=== PATIENT | female | born 1990 | race Caucasian/White ===

== ENCOUNTER 2021-07-18 21:05 | Inpatient (IN) | payer BC, SELFPAY ==
[2021-07-18] VITALS (8 sets, daily range): BP systolic 113–138; BP diastolic 70–94; PULSE 85–106; TEMP 36.4–36.8; O2SAT 98–100; BMI 27.7
--- NOTE | 2021-07-18 19:39 | OB.TRI.NOTE ---
HPI - General HPI Narrative ROSALINA CASTILLO, is a 31 F at 37.5 weeks gestation who presents for r/o SROM Maternal Data Information RAFAELA Calculator Estimated Delivery Date Method Current WG Current Estimate 08/03/21 Manual 37w 5d
[2021-07-18 20:45] LABS: ROM Internal Control Test YES-OK TO RESULT pt. (Internal QC)
[2021-07-18 20:46] LABS: ROM Patient Test POSITIVE (Negative)
[2021-07-18] MEDS: Lactated Ringers 1,000 ML 50 ML IV (21:20)
[2021-07-18 21:36] LABS: Absolute Lymphocyte Count 1.48 X10^3/uL (0.83-4.51); Absolute Neutrophil Count 7.5 X10^3/uL (2.0-7.7); Basophil# 0.04 X10^3/uL; Basophil% 0.4 % (0-1); Eosinophil# 0.07 X10^3/uL; Eosinophils% 0.7 % (0-5); Hematocrit 34.8 % (37-47); Hemoglobin 12.8 g/dL (12.0-15.0); Lymphocyte # 1.48 X10^3/ul (0.83-4.51); Lymphocyte % 14.4 % (19-41); Mean Corp Hgb Conc 36.8 g/dL (32-36); Mean Corpuscular Hgb 32.8 pg (27.0-32.0); Mean Corpuscular Volume 89.2 fL (81-99); Mean Platelet Vol. 11.1 fl (6.2-12.0); Monocyte% 10.7 % (0-10); NRBC Flagged by Analyzer 0 % (0-5); Neutrophil # 7.46 X10^3/uL (2.7-7.7); Neutrophil % 72.5 % (47-70); Platelet Count 206 K/mm3 (150-450); RBC Distribution Width CV 13.4 % (11.6-14.6); RBC Distribution Width SD 43.2 fl (35.1-43.9); White Blood Count 10.3 K/mm3 (4.4-11.0)
--- NOTE | 2021-07-18 22:22 | PCM.HP.OB ---
HPI - General General Date of Admission: 07/18/21 HPI Narrative ROSALINA CASTILLO, is a 31 F G1 PO at 37.5 who presents with leaking of fluid. Patient reports she felt a gush of fluid while sitting in the car around 1800. She continues to leak fluid. Positive movement. Denies any contractions. has been uncomplicated. Maternal Data Information RAFAELA Calculator Estimated Delivery Date Method Current WG Current Estimate 08/03/21 Manual 37w 5d PFSH PFSH Medical History Closed fracture of coccyx Home Medications [id number]-[id number]-Ge-[id number] [] 1 tab PO DAILY 07/18/21 [History Last Taken 07/18/21 07:00 1 tab] Allergy/AdvReac Type Severity Reaction Status Date / Time caffeine Allergy Other Verified 07/18/21 20:09 red (food color) Allergy Other Verified 07/18/21 20:10 Family History Father Cancer Ankylosis Grandmother Stomach cancer Lupus (systemic lupus erythematosus) Mother Salivary gland cancer Hypertension Grandfather Bone cancer Surgical History History of surgery History of surgery History of surgery Social History Smoking Status: Never smoker History Elective abortions Hx Para 0 Spontaneous abortions Hx # Term Pregnancies Ectopic pregnancies Hx # Pregnancies Multiple births # of living children NST FHR Rate Baby A Baseline: 130 Variability:: Moderate Accelerations:: 15 x 15 Decelerations:: None NST Reactive:: Yes FHR Category:: Category I Uterine Activity:: 4-5 minutes. Palpate mild and relaxed in between ROS Eyes Eyes: Denies blurry vision, change in vision or spots in vision ENT HEENT: Denies dizziness or headache(s) Cardiovascular Cardiovascular: Denies abdominal pain, chest pain or dyspnea Respiratory/Chest Respiratory/Chest: Denies cough, dyspnea, shortness of breath at rest or shortness of breath with exertion Gastrointestinal Gastrointestinal: Denies abdominal pain, diarrhea or vomiting Genitourinary Genitourinary: Denies change in urinary stream, difficulty urinating or dysuria Musculoskeletal Musculoskeletal: Reports none Integumentary Integumentary: Denies rash Neurologic Neurologic: Denies dizziness, headache(s), memory loss or weakness Psychiatric Psychiatric: Reports none Vital Signs Vital Signs Vital Signs: 07/18/21 19:50 07/18/21 19:51 07/18/21 19:52 Temperature 97.8 F Temperature Source Temporal Pulse Rate 100 105 H Blood Pressure 130/83 H BP Systolic 130 BP Diastolic 83 Pulse Ox 98 07/18/21 22:05 07/18/21 22:06 07/18/21 22:07 Temperature 98.3 F Temperature Source Temporal Pulse Rate 85 92 Blood Pressure 113/70 BP Systolic 113 BP Diastolic 70 Pulse Ox 100 Weight Weight: 156 lb 9.6 oz Body Mass Index (BMI) 27.7 Physical Exam Const alert, oriented x3 and no apparent distress General Appearance: cooperative Orientation / Consciousness: awake Exam Limitations: no limitations HEENT normocephalic Head and Scalp: normal to inspection Eyes General Eye: normal appearance of both eyes Neck full ROM and no lymphadenopathy Lymph Lymphatic: no lymphadenopathy noted Chest inspection of chest normal Resp normal respiratory effort, normal air movement and clear to auscultation bilaterally Effort and Inspection: able to speak in complete sentences and symmetric chest movement Cardio regular rate and regular rhythm GI normal to inspection, nondistended, normoactive bowel sounds Amniotic Fluid: clear amniotic fluid Back/Spine normal ROM Extremity full ROM and no calf tenderness Skin no rashes or lesions noted General Skin Exam: no breakdown Neuro oriented x3 and CN's II-XII intact bilaterally Psych mental status grossly normal and thought process normal Labs Labs Labs: Blood Type A POSITIVE Antibody Screen NEGATIVE Hct 34.8 % (37-47) L Hgb 12.8 g/dL (12.0-15.0) Rubella - immune HB- neg HC- neg RPR- NR HIV- NR GBS - negative Assessment & Plan (1) 37 weeks gestation of : (2) Leakage of amniotic fluid: (3) Spontaneous rupture of amniotic membranes: PLAN: Cat. 1 tracing, NST reactive ROM plus- positive CE- unable to reach cervix per business database analyst to labor and delivery Routine labs Start IV fluids and continue per orders IA, position changes, and ambulation CE every 4 hours or as needed TAUS confirms vertex Dr. Burnett notified and is collaborating physician
[2021-07-18] MEDS: 0.9% Saline Lock 10 ML Syringe IV (22:30)
[2021-07-19] VITALS (73 sets, daily range): BP systolic 92–149; BP diastolic 29–96; PULSE 81–130; RESP 16–20; TEMP 36.1–37; O2SAT 91–100
--- NOTE | 2021-07-19 03:27 | PCM.PN.BLA ---
Progress Note Patient seen at bedside. Breathing through contractions. Feeling increased pain with contractions. Declines pain medication at this time. Physical Exam Const alert and no apparent distress General Appearance: cooperative and comfortable Exam Limitations: no limitations HEENT normocephalic Eyes General Eye: normal appearance of both eyes Neck full ROM General: normal visual inspection Chest Chest: symmetrical chest wall rise Resp normal respiratory effort and normal air movement Effort and Inspection: symmetric chest movement Auscultation: clear to auscultation bilaterally Cardio regular rate and regular rhythm GI normal to inspection, nondistended, normoactive bowel sounds Back/Spine normal ROM Extremity full ROM and no calf tenderness General Extremity: normal exam except as noted Skin no rashes or lesions noted Neuro CN's II-XII intact bilaterally Psych mental status grossly normal Assessment & Plan Assessment/Plan (1) Spontaneous rupture of amniotic membranes: (2) 37 weeks gestation of : PLAN: CE- Cat. 1 tracing, NST reactive Active labor Epidural/ pain medication when indicated Anticipate
[2021-07-19] MEDS: Lactated Ringers 500 ML 999 ML IV (03:30)
[2021-07-19] MEDS: fentaNYL-bupivacaine (epidural) 100 ML BAG EPIDURAL ×2 (05:40→10:02)
[2021-07-19] MEDS: 0.9% Saline Lock 10 ML Syringe IV (07:33)
[2021-07-19] MEDS: Ondansetron 4 MG/2 ML Vial IV (07:33)
[2021-07-19] MEDS: Lactated Ringers 1,000 ML 200 ML IV ×2 (07:39→12:58)
[2021-07-19] MEDS: Oxytocin 30 units/NS 500 ml 30 UNITS/500 ML IV.SOLN IV (09:48)
[2021-07-19] MEDS: 0.9% Normal Saline 1,000 ML 999 ML IV (13:57)
[2021-07-19] MEDS: Sodium Citrate/Citric Acid 30 ML UDC PO (13:58)
--- NOTE | 2021-07-19 14:03 | PCM.PN.BLA ---
Progress Note I was called to evaluate the patient. She has been complete since 7 AM and has been pushing on and off for approximately 3 hours. Patient is at a +1 station caput appreciated. Patient was counseled on vacuum use and if failed would proceed with a primary section. Patient has been consented for vacuum use the vacuum was applied to the flexion point 2 attempts were made but no descent of the head. At this time I felt that it was best to proceed with a primary section. Patient and were counseled on risk for bleeding, infection, injury to pelvic structures including bladder bowel and vessels. Discussed the use of a pillow. The pillow was placed in the room with 180 cc of normal saline. OR team was notified. Ancef 2 g and is a thorough mycin 500 mg preop. All questions were answered.
[2021-07-19] MEDS: Cefazolin 2 GM in 0.9% Normal Saline 100 ML IV (14:17)
--- NOTE | 2021-07-19 14:46 | EX.PCM.OBRPT ---
Assessment & Plan (1) Delivery by section: Maternal Data Information RAFAELA Calculator Estimated Delivery Date Method Current WG Current Estimate 08/03/21 Manual 37w 6d Details Operative Information Date of Procedure: 07/19/21 Pre-Operative Diagnosis: term gestation, SROM Post-Operative Diagnosis: Same, Failed vacuum, Arrest of descent, live male Indications for : Failure of Descent Indications Narrative: Patient was complete and pushing on and off for approximately 3 hours. Vacuum was attempted failed and decision for primary section was performed. There was a small left broad ligament laceration is repaired. I discussed with the patient and her I do not recommend a trial of labor after previous for any future pregnancies. Classification: VIVIAN Procedure Type: low transverse pest control worker helper #1: Laura Mckeon Type of Anesthesia: Epidural Antibiotic Given: Ancef 2 grams IV x1 and Zithromax 500 mg/5 mL X1 Drain: Lang to straight drain Estimated Blood Loss: 700 Fluids Replaced: 900 Procedure Start Time: 14:15 Procedure Stop Time: 14:40 Time of Delivery: 14:18 Findings Description of Procedure: After informed consent was obtained the patient was taken the operating room. PILLOW placed prior to OR room. She was then placed in the supine position. She was prepped and draped in the normal sterile fashion. Epidural Anesthesia was found to be adequate. At this time a Pfannenstiel skin incision was made with a knife was carried down to the underlying layer of the fascia. The fascial incision was then extended laterally using curved Vann scissor. Tensions was then turned to the superior aspect of the fascial edge was grasped with 2 straight Bird In Hand clamps tented up and the rectus muscle dissected off sharply using curved Vann scissor. Attention was then turned to the inferior aspect where again Micki clamps were placed in the rectus muscles were tented up and the fascia was dissected off sharply using the curved Vann scissor. Rectus muscles were then in the midline bluntly and peritoneum was entered bluntly. Gentle opposing traction was placed. At this time the vesicouterine peritoneum was identified. Scalpel was used to make a uterine incision in a low transverse fashion. The uterus was then entered bluntly gentle opposing traction was placed to extend this incision. Fluid was clear. pillow elevated head that i was able to disengage and bring 's head to the uterine incision was delivered atraumatically. Mouth and nose were suctioned. Delayed cord clampig. Cord was clamped and cut infant was handed to the waiting nursery team. The Placenta was removed from the uterus. The uterus was then removed from the abdominal cavity. The uterus was cleared of all clots and debris using a lap. Extension to Left broad ligament noted- repaired with 2-0 vicryl. At this time the uterine incision was reapproximated using #1 Vicryl in a running locked fashion. Hemostasis was appreciated. Posterior cul-de-sac was then cleared of all clots and debris. Uterus was placed back in the abdominal cavity. Gutters were cleared of all clots and debris. Uterine incision was reevaluated and noted to be of excellent hemostasis. At this time the peritoneum and muscle were grasped with Kellys reapproximated using #2 Vicryl suture in a running fashion. Fascia was then reapproximated using #1 Vicryl in a running fashion. Subcu layer was reapproximated with #2 0 plain gut suture in an interrupted fashion. Subcu layer was closed using 4-0 vicryl on a Gino needle in a subcu fashion. Dry sterile dressing was applied. Instrument lap needle count correct ?2. Anticipated normal postoperative course. Presentation: Positive for Vertex Amniotic Membrane Rupture Type: Spontaneous Amniotic Fluid Description: Clear Placental Delivery Description: Expressed Placenta Disposition: [facility] Cord Vessel Description: 3 Vessels Cord Entanglement: None Nuchal Cord Compression: Without compression Cord Gases: ABG and VBG Infant A Gender: Male (1 minute): 8 (5 minute): 9 Delayed Cord Clamping: Yes Complications Risks of Surgery Discussed w/Patient: Bleeding, Anesthesia Risks, Infection, Need for Future C-Sections and Injury to surrounding structure(s) including bowel and bladder Admit VTE Documentation VTE Present on Admission: Yes VTE Mechan Device Prophylaxis: SCD's VTE Pharm Prophylaxis Ordered: No Reason Prophylaxis Not Ordered: Procedure Not Indicated
[2021-07-19] MEDS: Oxytocin 30 units/NS 500 ml 30 UNITS/500 ML IV.SOLN 167 UNITS IV (15:30)
[2021-07-19] MEDS: Ketorolac 30 MG/ML Syringe IV ×2 (15:43→22:17)
--- NOTE | 2021-07-19 15:45 | NURSING ---
JCoteatCRNA remains in pt room and is aware of low blood pressure reading. no interventions at this time.
[2021-07-19] MEDS: Lactated Ringers 250 ML 999 ML IV (17:03)
--- NOTE | 2021-07-19 18:09 | NURSING ---
@ 154 EVETTEoteatCDERIC called and discussed pt increased pain level, pt rating pain 8/10 on pain intensity scale. awaiting pharmacy verification for Toradol IV. EVETTEoteatCRNA states he will consult with Dr. Montoya on dosage and will get back to RN. @ [phone] EVETTEoteatCRNA in pt room and states he will give pain medication through epidural catheter for pain relief. Also states that he will give dosage in dosages and will be back in room to give pt other portion of medication.
--- NOTE | 2021-07-19 18:12 | NURSING ---
@ 1683 CPlottsCNM called and given update of pt HR throughout recovery. pts HR ranging 110-135, fundus firm, afebrile, and bleeding appropriate. order for 250ml LR IV bolus and to continue to monitor pt.
--- NOTE | 2021-07-19 18:13 | NURSING ---
@ 1800 CPlottsCNM on unit and updated on pt HR after IV LR bolus; HR ranging in 120s. CPlottsCNM states she is okay with HR reading and to continue to monitor.
[2021-07-19] MEDS: Acetaminophen 500 MG Tablet 1000 MG PO (19:40)
[2021-07-19] MEDS: Lactated Ringers 1,000 ML 100 ML IV (19:42)
[2021-07-20] VITALS (12 sets, daily range): BP systolic 94–116; BP diastolic 47–71; PULSE 101–125; RESP 16–18; TEMP 36.1–36.6; O2SAT 97–100
[2021-07-20] MEDS: Ketorolac 30 MG/ML Syringe IV ×2 (04:32→09:57)
[2021-07-20] MEDS: Acetaminophen 500 MG Tablet 1000 MG PO ×3 (04:32→20:08)
[2021-07-20 05:48] LABS: Hematocrit 24.2 % (37-47); Hemoglobin 8.6 g/dL (12.0-15.0); Mean Corp Hgb Conc 35.5 g/dL (32-36); Mean Corpuscular Hgb 32.2 pg (27.0-32.0); Mean Corpuscular Volume 90.6 fL (81-99); Mean Platelet Vol. 10.1 fl (6.2-12.0); Platelet Count 147 K/mm3 (150-450); RBC Distribution Width CV 13.9 % (11.6-14.6); RBC Distribution Width SD 45.2 fl (35.1-43.9); Red Blood Count 2.67 M/mm3 (4.2-5.4)
[2021-07-20] MEDS: Lactated Ringers 1,000 ML 100 ML IV (06:28)
--- NOTE | 2021-07-20 09:16 | PCM.PN.OB ---
Subjective Subjective Patient seen at bedside. Feeling good. Minimal ambulation. Lang cath just removed. Denies any pain. with support. Denies any headache, dizziness, SOB, or CP. Objective Data Objective Data Vital Signs: Vital Signs Temp Pulse Resp BP Pulse Ox 97.9 F 109 H 16 102/55 L 100 07/20/21 03:41 07/20/21 07:45 07/20/21 07:45 07/20/21 03:41 07/20/21 07:45 Oxygen Delivery Method Room Air Weight: 156 lb 9.6 oz Body Mass Index (BMI) 27.7 Intake & Output: Intake and Output for Last 24 Hours 07/18/21 07/19/21 07/21/21 23:59 23:59 00:59 Intake Total 58.33 / 58.33 4731.51 / 4731.51 976.67 / 976.67 Output Total 1800 / 1800 800 / 800 Balance 58.33 / 58.33 2931.51 / 2931.51 176.67 / 176.67 Lab / Micro Data Result Diagrams: 07/20/21 05:40 Labs: Laboratory Results - last 24 hr 07/20/21 05:40: WBC 13.0 H, RBC 2.67 L, Hgb 8.6 L, Hct 24.2 L, MCV 90.6, MCH 32.2 H, MCHC 35.5, RDW Std Deviation 45.2 H, RDW Coeff of Shagufta 13.9, Plt Count 147 L, MPV 10.1 Micro: Microbiology 07/18/21 21:30 Nasal Secretion SARS-CoV-2 Antigen (Rapid) - Final ROS Eyes Eyes: Denies blurry vision, change in vision or spots in vision ENT HEENT: Denies dizziness or headache(s) Cardiovascular Cardiovascular: Denies abdominal pain, chest pain or dyspnea Respiratory/Chest Respiratory/Chest: Denies cough, dyspnea, shortness of breath at rest or shortness of breath with exertion Gastrointestinal Gastrointestinal: Denies abdominal pain, diarrhea or vomiting Genitourinary Genitourinary: Denies change in urinary stream, difficulty urinating or dysuria Musculoskeletal Musculoskeletal: Reports none Integumentary Integumentary: Denies rash Neurologic Neurologic: Denies dizziness, headache(s), memory loss or weakness Physical Exam Const alert and no apparent distress General Appearance: cooperative and comfortable Exam Limitations: no limitations HEENT normocephalic Eyes General Eye: normal appearance of both eyes Neck full ROM General: normal visual inspection Chest Chest: symmetrical chest wall rise Resp normal respiratory effort and normal air movement Effort and Inspection: symmetric chest movement Auscultation: clear to auscultation bilaterally Cardio regular rate and regular rhythm GI normal to inspection, nondistended, normoactive bowel sounds Back/Spine normal ROM Extremity full ROM and no calf tenderness General Extremity: normal exam except as noted Skin no rashes or lesions noted Neuro CN's II-XII intact bilaterally Psych mental status grossly normal Assessment & Plan (1) Delivery by section: (2) Care and examination of lactating mother: (3) Anemia due to blood loss: PLAN: PO Day1 Primary C/S Pain control Ambulation HGB 12.8 to 8.6 today- Start oral iron supplementation Repeat CBC tomorrow Anticipate discharge home tomorrow
[2021-07-20] MEDS: Senna/Docusate Sodium 1 Tablet PO (09:58)
[2021-07-20] MEDS: 0.9% Saline Lock 10 ML Syringe IV (09:58)
[2021-07-20] MEDS: Ferrous Sulfate 325 MG Tablet PO ×2 (13:38→17:35)
[2021-07-20] MEDS: Ibuprofen 600 MG Tablet PO ×2 (17:18→22:46)
--- NOTE | 2021-07-20 17:39 | NURSING ---
CPlottsCNM called. moisture noted within pts incision dressing; this RN removed and order received to replace mepilex dressing.
[2021-07-21] MEDS: Acetaminophen 500 MG Tablet 1000 MG PO (02:38)
[2021-07-21 02:39] VITALS: BP 106/59; PULSE 101; RESP 18; TEMP 36.1; O2SAT 97
[2021-07-21] MEDS: Ibuprofen 600 MG Tablet PO (04:39)
[2021-07-21 04:47] LABS: Hematocrit 23.8 % (37-47); Hemoglobin 8.3 g/dL (12.0-15.0); Mean Corp Hgb Conc 34.9 g/dL (32-36); Mean Corpuscular Hgb 32.3 pg (27.0-32.0); Mean Corpuscular Volume 92.6 fL (81-99); Mean Platelet Vol. 10.2 fl (6.2-12.0); Platelet Count 150 K/mm3 (150-450); RBC Distribution Width CV 14.1 % (11.6-14.6); RBC Distribution Width SD 46.8 fl (35.1-43.9); Red Blood Count 2.57 M/mm3 (4.2-5.4); White Blood Count 12.1 K/mm3 (4.4-11.0)
--- NOTE | 2021-07-21 06:28 | PCM.DC.SUM ---
Providers Date of Admission: 07/18/21 Primary Care Physician: No Primary Care Phys Reason For Visit: PRIMARY C SECTION Diagnosis Discharge Diagnosis (1) Delivery by section: Status: Acute (2) Care and examination of lactating mother: Status: Acute Code(s): Z39.1 - Encounter for care and examination of lactating mother (3) Anemia due to blood loss: Status: Acute Code(s): D50.0 - Iron deficiency anemia secondary to blood loss (chronic) Medications at Discharge Home Medications [id number]-[id number]-FA 1 tab PO DAILY 07/18/21 ferrous sulfate [FeroSul] 325 mg PO 1200,1700 #0 tab 07/21/21 Hospital Course Operations section Summary of Care Provided Hospital Course: Patient for primary section. Hospital course was uneventful. Physical Exam Narrative Patient seen at bedside. Feeling good. Ambulation and voiding without difficulty. Lochia minimal. Denies headache, vision changes, SOB, or CP. Desires discharge home today. . Dressing is dry and intact Const alert and no apparent distress General Appearance: cooperative and comfortable Exam Limitations: no limitations HEENT normocephalic Eyes General Eye: normal appearance of both eyes Neck full ROM General: normal visual inspection Chest Chest: symmetrical chest wall rise Resp normal respiratory effort and normal air movement Effort and Inspection: symmetric chest movement Auscultation: clear to auscultation bilaterally Cardio regular rate and regular rhythm GI normal to inspection, nondistended, normoactive bowel sounds Back/Spine normal ROM Extremity full ROM and no calf tenderness General Extremity: normal exam except as noted Skin no rashes or lesions noted Neuro CN's II-XII intact bilaterally Psych mental status grossly normal Weight / BMI Weight Weight: 156 lb 9.6 oz Body Mass Index (BMI) 27.7 ABG / Lab / Microbiology Data Result Diagrams: 07/21/21 04:37 Laboratory: Laboratory Results - last 24 hr 07/21/21 04:37: WBC 12.1 H, RBC 2.57 L, Hgb 8.3 L, Hct 23.8 L, MCV 92.6, MCH 32.3 H, MCHC 34.9, RDW Std Deviation 46.8 H, RDW Coeff of Shagufta 14.1, Plt Count 150, MPV 10.2 Microbiology: Microbiology 07/18/21 21:30 Nasal Secretion SARS-CoV-2 Antigen (Rapid) - Final D/C Instructions Discharge Diet: No restrictions May resume sexual activity in: 6-8 weeks Weight Bearing Status: Weight bearing as tolerated Lifting Restrictions: 20 lbs Call your doctor if your incision/area has: Continuous Slow Oozing, Increased Pain/ Swelling, Increased Redness, Foul Smelling Discharge and Swelling at the incision site Call your doctor if you observe: Fever of 101 or Higher, Inability to urinate, Using more than 1 pad per hour, Shortness of breath, Chest pain, Calf discomfort and Uncontrolled pain Remove Dressing in: 5 days Cleanse incision/area with: Soap & Water and Keep Dressing Clean & Dry Please Follow Up With: Roxie Allen CNM When: 1 week in office for incision check or sooner if needed 6 weeks Meaningful Use Info Meaningful Use Diagnoses (Choose all that apply): None applicable Discharge Plan Admission Admit Date/Time: 07/18/21 21:05 Primary Reason for Your Visit: Labor and delivery/ C/S Attending Provider: Roxie Allen Primary Care Provider: Care Physician,No Primary Discharge Orders/Prescriptions Prescriptions: New ferrous sulfate [FeroSul] 325 mg (65 mg iron) Tablet 325 mg PO 1200,1700 Qty: 0 RF: 0 Continued uvbsxcre-zam-Vs-FA 1 mg Tablet 1 tab PO DAILY RF: 0 Referrals / Follow Up: Care Physician,No Primary [Primary Care Provider] - Disposition Disposition (needs filled in before D/C Order can be placed): Home, Self Care
[2021-07-21 10:00] VITALS: BP 112/59; PULSE 74; RESP 16; TEMP 36.1
== END 2021-07-21 11:30 | disposition home or self-care (01) | DRG 788 ==
LOC: WPOUT 21:11 → WP 21:11
PROVIDERS: Admitting Provider Advanced Practice Midwife; Visit Provider Advanced Practice Midwife
DX: O32.4XX0 Maternal care for high head at term, not applicable or unspecified (principal); D50.0 Iron deficiency anemia secondary to blood loss (chronic); Z37.0 Single live birth; O66.5 Attempted application of vacuum extractor and forceps; Z3A.37 37 weeks gestation of pregnancy; O90.81 Anemia of the puerperium; Z39.1 Encounter for care and examination of lactating mother
CPT/HCPCS: 59025; 59050; 76815; 84112; 85025; 85027; 86850; 86900; 86901; 87811; 99218; J7030; J7120; A4216; G0378; J2405; J3490

== ENCOUNTER 2023-06-02 05:10 | Inpatient (IN) | payer OTHER, SELFPAY ==
--- NOTE | 2023-05-31 17:05 | HP.PCM_ITS ---
History and Physical Date of Admission: 06/02/23 ? HPI: The patient is a 33 year old female presenting for pre-operative visit. She is scheduled for , for previous c/s and 39 weeks on 05/02/24. Procedure discussed along with risks, benefits and complications. Other alternatives discussed for management. Consent form signed? Yes. ? ? PAST MEDICAL HISTORY No past medical history on file. ? ? PAST SURGICAL HISTORY PAST SURGICAL HISTORY Procedure Laterality Date ? DELIVERY ONLY ? 07/19/2021 ? LTCS ? MYRINGOTOMY ASPIR&/EUSTACHIAN TUBE NFLTJ ? ? ? x2 ? PAST SURGICAL HISTORY OF ? ? ? wisdom teeth ? PAST SURGICAL HISTORY OF ? ? ? phrenectomy ? ? ? CURRENT MEDICATIONS Current Outpatient Medications Medication Sig Dispense Refill ? ferrous sulfate 325 mg (65 mg iron) tablet Take 1 tablet by mouth every other day. 30 tablet 1 ? Breast Pump Use as directed 1 Each 0 ? metoclopramide HCl (REGLAN) 5 mg tablet Take 1 tablet by mouth four times daily as needed (headache or nausea). 30 tablet 1 ? magnesium oxide (MAG-OX) 400 mg (241.3 mg magnesium) tablet Take 1 tablet by mouth once daily. ? ? ? Kzybzrqr-Km-Ffj-Fe-FA ( VITAMIN) tab Take 1 tablet by mouth. ? ? ? No current facility-administered medications for this visit. ? ? ALLERGIES: Caffeine and Red Dye ? PERSONAL HISTORY: SOCIAL HISTORY Social History ? Tobacco Use ? Smoking status: Never ? Smokeless tobacco: Never Vaping Use ? Vaping Use: Never used Substance Use Topics ? Alcohol use: Not Currently ? ? Comment: socially ? Drug use: Never ? FAMILY HISTORY: FAMILY HISTORY FAMILY HISTORY Problem Relation Age of Onset ? Hypertension Mother ? ? other (saliva gland cancer) Mother ? ? Skin Cancer Mother ? ? other (ankylosis) Father ? ? Cancer Father ? ? No Known Problems Brother ? ? No Known Problems Maternal Grandmother ? ? other (bone cancer) Maternal Grandfather ? ? Cancer Paternal Grandmother ? ? Systemic Lupus Erythematosus Paternal Grandmother ? ? No Known Problems Paternal Grandfather ? ? No Known Problems Son ? ? ? REVIEW OF SYMPTOMS: GENERAL: denies fevers or chills ENDOCRINOLOGY: has not been on steroids Cardiology : denies palpitations or chest pain Respiratory: denies SOB or cough Hematology: denies history of prolonged bleeding or easy bruising or VTE Allergy: Denies history of personal or family history of allergy to anesthesia ? PHYSICAL EXAMINATION: ? VITALS: Last menstrual period 08/31/2022, not currently . ? GENERAL: The patient is well nourished, well hydrated in no acute distress. , The patient is oriented to time, place, and person. NECK: Supple. No lynphadenopathy, normal thyroid, no thyromegaly. LUNGS: Clear to auscultation bilaterally. no wheezes, rhonchi or rales HEART: Regular rate and rhythm, Normal heart sounds, and No murmurs or gallops Abd- soft, nontender, gravid ? ? IMPRESSION: Estimated Date of Delivery: 06/07/23 Previous c/s ? PLAN: The risks/benefits/alternatives and personal involved for the planned c- section were reviewed with the patient. Her questions were answered to her satisfaction and she desires to proceed. Consent was signed. I reviewed with her postop instructions and expectations. ? ? I have reviewed and updated past medical and surgical history, medications and allergies Assessment & Plan Assessment/Plan (1) 39 weeks gestation of : (2) Encounter for supervision of other normal , third trimester:
--- NOTE | 2023-05-31 17:05 | PCM.DC.SUM ---
Providers Primary Care Physician: No Primary Care Phys Diagnosis Discharge Diagnosis (1) 39 weeks gestation of : Status: Acute Code(s): Z3A.39 - 39 weeks gestation of (2) Encounter for supervision of other normal , third trimester: Status: Acute Code(s): Z34.83 - Encounter for supervision of other normal , third trimester Medications at Discharge Home Medications [id number]-yuu-Ok-FA 1 mg tablet 1 tab PO DAILY vitamin 07/18/21 ferrous sulfate 325 mg (65 mg iron) tablet (FeroSul) 325 mg PO 1200,1700 #0 tabs 07/21/21 Meaningful Use Info Meaningful Use Diagnoses (Choose all that apply): None applicable Discharge Plan Admission Attending Provider: Vane Matthew Primary Care Provider: Care Physician,Sandra Primary Discharge Orders/Prescriptions Prescriptions: No Action wtfvalin-wya-Sb-FA 1 mg Tablet 1 tab PO DAILY ferrous sulfate [FeroSul] 325 mg (65 mg iron) Tablet 325 mg PO 1200,1700 Qty: 0 0RF Referrals / Follow Up: Care Physician,No Primary [Primary Care Provider] -
[2023-06-02] VITALS (24 sets, daily range): BP systolic 98–143; BP diastolic 53–83; PULSE 68–98; RESP 15–22; TEMP 36.4–37.3; O2SAT 95–100; BMI 27.7
--- OUTSIDE RECORDS SUMMARY | 2023-06-02 05:17 | XMS RPT_ITS | CCD ---
Author Name Unknown Address [address] [place] [address] Organization [facility] Care Team Providers Care Sourcing Specialist Name Role Phone Addison Morenoel Unavailable Unavailable Newbill, Addison Mack Unavailable Unavailable Yung, Roman Unavailable Unavailable Newbill, Addison Mack Unavailable Unavailable Newbill, Addison Mack Unavailable Unavailable Yung, Roman Unavailable Unavailable August Unavailable Unavailable Yung, Roman L Unavailable Unavailable Unavailable Primary Care Provider Unavailabl e Unavailable Primary Care Provider Unavailabl e RASHAD, NAYE L Referring Unavailable RASHAD, NAYE L Attending Unavailable RASHAD, NAYE L Attending Unavailable RASHAD, NAYE L Referring Unavailable BRIGID CHEEK Attending Unavailable RASHAD, NAYE L Attending Unavailable RASHAD, NAYE L Attending Unavailable RASHAD, NAYE L Attending Unavailable ROXIE HARRIS Attending Unavailable RASHAD, NAYE L Attending Unavailable RASHAD, NAYE L Attending Unavailable RASHAD, NAYE L Referring Unavailable RASHAD, NAYE L Referring Unavailable JAZMIN DOMINGUEZ Attending Unavailable RASHAD, NAYE L Attending Unavailable RASHAD, NAYE L Attending Unavailable Allergies Allergy Classification Reported Allergen(s) Allergy Type Date of Onset Reaction(s) Facility (13 sources) Caffeine; Translations: [caffeine] Drug Allergy 1 Other: See Comments [facility] Repository (2 sources) food dye; Translations: [food dye] Propensity to adverse reactions to drug (disorder) AOF, Other [facility] Repository (11 sources) Contrast media; Translations: [RED DYE] Drug Intolerance 1 Other: See Comments [facility] Work Phone: (1 source) ALLERGIES NOT ON FILE; Translations: [ALLERGIES NOT ON FILE] Propensity to adverse reactions (disorder) [facility] Repository Medications Current Medications Medication Drug Class(es) Dates Sig (Normalized) Sig (Original) Breast Pump (2 sources) Start: 03-15-2023 End: 03-14-2024 Breast Pump Use as directed 1 Each 0 03/15/2023 03/14/2024 Active Completed/Discontinued Medications Medication Drug Class(es) Dates Sig (Normalized) Sig (Original) estradiol 0.1 mg/ml vaginal cream (5 sources) Estrogen Start: 09-01-2021 End: 01-12-2023 estradiol (ESTRACE) 0.01 % (0.1 mg/gram) vaginal cream apply approx. 1/2 inch of cream to lower vagina qhs three times weekly 42.5 g 0 09/01/2021 01/12/2023 Discontinued (Other) Problems Active Problems Problem Classification Problem Date Documented Da te Episodic/Chronic Headache; including migraine (2 sources) Cluster headache; Translations: [Migraine] Chronic Headache; including migraine (1 source) Tension-type headache; Translations: [Headache, tension-type] Episodic Immunizations and screening for infectious disease (1 source) Vaccination needed; Translations: [Encounter for immunization] 03-15-2023 Episodic Other complications of (1 source) with inconclusive viability, not applicable or unspecified; Translations: [ with inconclusive viability] Episodic Other non-traumatic joint disorders (1 source) Acute ankle pain; Translations: [Acute right ankle pain] Episodic Residual codes; unclassified (2 sources) Gestation period, 19 weeks; Translations: [19 weeks gestation of ] 01-12-2023 Episodic Residual codes; unclassified (1 source) Gestation period, 23 weeks; Translations: [23 weeks gestation of ] 02-09-2023 Episodic Residual codes; unclassified (2 sources) Gestation period, 28 weeks; Translations: [28 weeks gestation of ] Onset: 03-20-2023 03-15-2023 Episodic Residual codes; unclassified (1 source) 28 weeks gestation of ; Translations: [28 weeks gestation of ] Onset: 03-20-2023 Episodic Residual codes; unclassified (1 source) Gestation period, 32 weeks; Translations: [32 weeks gestation of ] 04-13-2023 Episodic Residual codes; unclassified (1 source) 37 weeks gestation of ; Translations: [37 weeks gestation of ] Onset: 2023 Episodic Residual codes; unclassified (1 source) 30 weeks gestation of ; Translations: [30 weeks gestation of ] Onset: 03-29-2023 Episodic Past or Other Problems Problem Classification Problem Date Documented Da te Episodic/Chronic Other and delivery including normal (8 sources) care status; Translations: [Encounter for routine follow-up] Onset: 12-25-2020 Episodic Other screening for suspected conditions (not mental disorders or infectious disease) (4 sources) Patient encounter status; Translations: [Encounter for screening, unspecified] Onset: 01-12-2023 Episodic Previous (18 sources) ; Translations: [Maternal care for unspecified type scar from previous delivery] Onset: 10-22-2022 Episodic Residual codes; unclassified (1 source) 19 weeks gestation of ; Translations: [19 weeks gestation of ] Onset: 01-12-2023 Episodic NEGATED: Highlighted row has not occurred!Residual codes; unclassified (4 sources) Disease Episodic Results Test Name Value Interpretation Reference Range Facil ity Vital Signs Date Time Vital Sign Value Performing Clinician Yeimi mosley 04-13-2023 15:20-0500 Body weight 67.13 kg Naye Solorzano MD Work Phone: [facility] 04-13-2023 15:20-0500 Diastolic blood pressure 62 mm[Hg] Naye Solorzano MD Work Phone: [facility] 04-13-2023 15:20-0500 Systolic blood pressure 106 mm[Hg] Naye Solorzano MD Work Phone: [facility] 03-15-2023 15:58-0500 Body weight 63.5 kg Naye Solorzano MD Work Phone: [facility] 03-15-2023 15:58-0500 Diastolic blood pressure 60 mm[Hg] Naye Solorzano MD Work Phone: [facility] 03-15-2023 15:58-0500 Systolic blood pressure 98 mm[Hg] Naye Solorzano MD Work Phone: [facility] 02-09-2023 16:05-0400 Body weight 61.42 kg Jazmin Dominguez MD Work Phone: [facility] 02-09-2023 16:05-0400 Diastolic blood pressure 52 mm[Hg] Jazmin Dominguez MD Work Phone: [facility] 02-09-2023 16:05-0400 Systolic blood pressure 82 mm[Hg] Jazmin Dominguez MD Work Phone: [facility] 01-12-2023 15:23-0400 Body weight 60.33 kg Naye Solorzano MD Work Phone: [facility] 01-12-2023 15:23-0400 Diastolic blood pressure 62 mm[Hg] Naye Solorzano MD Work Phone: [facility] 01-12-2023 15:23-0400 Systolic blood pressure 106 mm[Hg] Naye Solorzano MD Work Phone: [facility] 11-04-2022 10:37-0400 Body height 157.5 cm Naye Solorzano MD Work Phone: [facility] 11-04-2022 10:37-0400 Body weight 56.7 kg Naye Solorzano MD Work Phone: [facility] 11-04-2022 10:37-0400 Diastolic blood pressure 62 mm[Hg] Naye Solorzano MD Work Phone: [facility] 11-04-2022 10:37-0400 Systolic blood pressure 110 mm[Hg] Naye Solorzano MD Work Phone: [facility] 09-01-2021 08:36-0400 Body height 157.5 cm Naye Solorzano MD Work Phone: [facility] 09-01-2021 08:36-0400 Body weight 61.69 kg Naye Solorzano MD Work Phone: [facility] 09-01-2021 08:36-0400 Diastolic blood pressure 58 mm[Hg] Naye Solorzano MD Work Phone: [facility] 09-01-2021 08:36-0400 Systolic blood pressure 98 mm[Hg] Naye Solorzano MD Work Phone: [facility] 08-05-2021 11:30-0400 Body weight 61.24 kg Naye Solorzano MD Work Phone: [facility] 08-05-2021 11:30-0400 Diastolic blood pressure 58 mm[Hg] Naye Solorzano MD Work Phone: [facility] 08-05-2021 11:30-0400 Systolic blood pressure 98 mm[Hg] Naye Solorzano MD Work Phone: [facility] 01-23-2020 18:44-0400 BMI (Body Mass Index) 22.67 kg/m2 [facility] Work Phone: 01-23-2020 18:44-0400 Body weight 58.06 kg [facility] Work Phone: 01-23-2020 18:44-0400 BP Diastolic 60 mm[Hg] [facility] Work Phone: Encounters Encounter Date Encounter Type Care Provider Facility Start: 05-31-2023 End: 05-31-2023 ambulatory NAYE SOLORZANO Facility:[facility] Start: 2023 End: 05-21-2023 ambulatory ROXIE HARRIS Facility:[facility] Start: 05-12-2023 End: 05-12-2023 ambulatory NAYE SOLORZANO Facility:[facility] Start: 04-28-2023 End: 04-28-2023 ambulatory NAYE SOLORZANO Facility:[facility] Start: 04-13-2023 End: 04-13-2023 ambulatory NAYE SOLORZANO Facility:[facility] Start: 04-13-2023 End: 04-13-2023 Patient encounter procedure Naye Solorzano MD Work Phone: OB/Gynecology Procedures Date Procedure Procedure Detail Performing Clinician Start: 04-13-2023 URINE OB DIP B/O Josette Solorzano MD Work Phone: Start: 03-20-2023 CBC W Auto Different ial panel - Blood Start: 03-20-2023 GLUCOSE, 1 HOUR SCRE EN, Start: 03-20-2023 SYPHILIS SCREENING W ITH REFLEX Start: 03-15-2023 URINE OB DIP B/O Josette Solorzano MD Work Phone: Start: 02-09-2023 URINE OB DIP B/O Jazmin Dominguez MD Work Phone: Start: 01-12-2023 URINE OB DIP B/O Joestte Solorzano MD Work Phone: Start: 01-12-2023 Us preg uterus after 1st trimest 05/10 gestation Naye Solorzano MD Work Phone: Start: 11-30-2022 Antibody screen NAYE SOLORZANO Plan of Treatment Date Care Activity Detail Author Start: 03-15-2033 Urine microalbumin profile DTaP,Tdap,Td Vaccine (3 - Td or Tdap) [facility] Start: 05-14-2031 Urine microalbumin profile [facility] Start: 12-25-2025 HPV TESTING HPV TESTING [facility] Start: 12-25-2025 PAP TESTING PAP TESTING [facility] Start: 02-09-2023 End: 04-11-2023 CBC W Auto Differential panel - Blood CBC + DIFF Lab Routine 23 weeks gestation of Expected: 02/09/2023, Expires: 04/11/2023 [facility] Work Phone: Immunizations Immunization Date Immunization Notes Care Provider Fa [facility] 03-15-2023 tetanus toxoid, redu neri diphtheria toxoid, and acellular pertussis vaccine, adsorbed Naye Solorzano MD Work Phone: [facility] 05-14-2021 tetanus toxoid, redu neri diphtheria toxoid, and acellular pertussis vaccine, adsorbed Naye Solorzano MD Work Phone: [facility] Payers Date Payer Category Payer Private Health Insurance TAMIRNICO LUNA [employer] [id number] 2022-Present [phone] [address] [place] [id number] PPO [id number] 2022 Unknown [id number] 2017 Unknown 2017 Unknown [id number] 2017 Unknown NUBIA PHIPPS PPO [id number] 2017-Present [phone] [address] [place] [address] PPO [id number] 1989 Unknown [id number] 1989 Unknown [id number] 1989 Unknown [id number] 1989 Unknown [id number] Social History Date Type Detail Facility Start: 12-12-2020 End: 11-30-2022 Tobacco smoking status NHIS Never smoked tobacco [facility] Work Phone: Start: 12-12-2020 End: 11-30-2022 Tobacco use and exposure Smokeless tobacco non-user [facility] Work Phone: Start: 08-05-2021 End: 04-13-2023 Alcohol intake Ex-drinker (finding) [facility] Start: 12-12-2020 History SDOH Alcohol Comment socially [facility] Start: 12-12-2020 Education 18 [facility] Start: 1990 Sex Assigned At Female C [facility] Start: 07-14-2021 End: 07-24-2021 Exposure to SARS-CoV-2 (event) Not sure [facility] Start: 09-14-2022 [facility] Start: 10-22-2022 End: 01-12-2023 History of Social function [facility] Start: 10-22-2022 End: 01-12-2023 Tobacco use panel [facility] National Score (1-100), lower number is lower risk 74 [facility] Start: 01-15-2021 Gender identity Identifies as female gender (finding) [facility] Start: 01-15-2021 Sexual orientation Heterosexual (emani love) [facility] NEGATED: Highlighted row - - [facility] Work Phone: Goals Date Patient Goal Desired Activity /State Personal health goal Functional Status Date Assessment Result Facility NEGATED: Highlighted row Functional performance Functional status health issues are not documented Disease [facility] Work Phone: Mental Status Date Assessment Result Facility NEGATED: Highlighted row Cognitive function [Interpretation] Cognitive status health issues are not documented Disease [facility] Work Phone: Clinical Notes 03-17-2021 to 05-24-2023 Quick Notes - Naye Solorzano MD - 04/13/2023 3:36 PM ESTPatient InstructionsPrenatal Quick Notes - Naye Solorzano MD - 03/15/2023 4:11 PM ESTPatient InstructionsPatient Instructions Note Date & Type Note Facility 05-24-2023 Note Patient Outreach (CARLOS TNAV) SHANNON CASTILLO ([id number]) 1990 F Date Time Provider Department 05/24/23 JEFFREY CLEANING (PSS) During your visit today, we recorded the following information about you: Jeffrey Sibley 05/24/2023 9:28 AM Signed POPULATION HEALTH NAVIGATION OUTREACH Action/FYI Called and phone call went directly into voicemail, left a voicemail for patient to call me back directly. Mychart message sent OB/PEDS Patient Identified by Name and : NO Outreach Outcome/Action Unable to reach patient: Left message MyChart message sent Did you use a PCP flex slot to schedule this appointment? N/A Reason for Outreach Payer: Payor: AETNICO / Plan: AETNICO [facility] / Product Type: PPO / Care Gap Reviewed:: N/A Reminder: Reminder note to check Health Maintenance for items below Health Maintenance items due: Hepatitis B Vaccine(1 of 3 - 3-dose series) Never done Covid-19 Vaccine(1) Never done Influenza Vaccine(1) Never done Depression Assessment Never done Navigation Signature: Jeffrey Rizzo May 24, 2023 9:27 AM Jeffrey Sibley 05/24/2023 10:10 AM Signed POPULATION HEALTH NAVIGATION OUTREACH Action/FYI Patient called back and said that her baby will see the same provider as her other child. Liz Carrillo CNP. Updated OB/PEDS field. She thanked me for calling earlier. OB/PEDS Patient Identified by Name and : YES, via phone Outreach Outcome/Action OB/PEDS field updated Did you use a PCP flex slot to schedule this appointment? N/A Navigation Signature: Jeffrey Rizzo May 24, 2023 9:36 AM Allergies As of Date: 05/24/2023 Noted Allergy Reaction CAFFEINE 12/12/2020 14 - Other: See Comments Comments: Migraines RED DYE 12/12/2020 14 - Other: See Comments Comments: Migraines Date Reviewed: 2023 Reviewed by: Roxie Harris APRN.CNM - Fully Assessed Reason for Visit: Population Health Navigation Outreach [3910] Cmt: OB/PEDS Prescriptions as of 05/24/2023 - ferrous sulfate 325 mg (65 mg iron) tablet Take 1 tablet by mouth every other day. - Breast Pump Use as directed - metoclopramide HCl (REGLAN) 5 mg tablet Take 1 tablet by mouth four times daily as needed (headache or nausea). - magnesium oxide (MAG-OX) 400 mg (241.3 mg magnesium) tablet Take 1 tablet by mouth once daily. - Wkdkxphv-Cv-Poo-Fe-FA ( VITAMIN) tab Take 1 tablet by mouth. Problem List As Of Date 05/24/2023 Noted Resolved Patient request for diagnostic testing [Z01.89] 12/12/2020 Encounter for supervision of normal first pregn*12/25/2020 09/01/2021 COVID-19 vaccine series declined [Z28.21, Z28.3*03/17/2021 09/01/2021 with history of section, ant*10/22/2022 Encounter Status:Closed by JEFFREY SIBLEY on 05/24/23 [facility] 05-24-2023 Note HNO ID: [id number] Author: ?, ?, ? Service: ? Author Type: ? Type: Progress Notes Filed: 05/24/2023 10:10 Note Text: POPULATION HEALTH NAVIGATION OUTREACH Action/FYI Patient called back and said that her baby will see the same provider as her other child. Liz Carrillo EXAMINER OF CURRENCY. Updated OB/PEDS field. She thanked me for calling earlier. OB/PEDS Patient Identified by Name and : YES, via phone Outreach Outcome/Action OB/PEDS field updated Did you use a PCP flex slot to schedule this appointment? N/A Navigation Signature: Jeffrey Rizzo May 24, 2023 9:36 AM [facility] 05-24-2023 Note HNO ID: [id number] Author: ?, ?, ? Service: ? Author Type: ? Type: Progress Notes Filed: 05/24/2023 09:28 Note Text: POPULATION HEALTH NAVIGATION OUTREACH Action/FYI Called and phone call went directly into voicemail, left a voicemail for patient to call me back directly. Mychart message sent OB/PEDS Patient Identified by Name and : NO Outreach Outcome/Action Unable to reach patient: Left message MyChart message sent Did you use a PCP flex slot to schedule this appointment? N/A Reason for Outreach [place] Payer: Payor: AETNA [facility] Product Type: [facility] / Care Gap Reviewed:: N/A Reminder: Reminder note to check Health Maintenance for items below Health Maintenance items due: Hepatitis B Vaccine(1 of 3 - 3-dose series) Never done Covid-19 Vaccine(1) Never done Influenza Vaccine(1) Never done Depression Assessment Never done Navigation Signature: Jeffrey Rizzo May 24, 2023 9:27 AM [facility] 04-13-2023 Miscellaneous Notes RR- VB No. LOF No. CTXS No. Movement: present. Other c/o: No. Medication list reviewed. Physical Exam See Flow Sheet Abd: soft, nontender, gravid Ext: edema: Trace A/P 32w1d Estimated Date of Delivery: 06/07/23 plans repeat c/s F/u in 2 weeks declines RSV after discussion today Naye Solorzano M.D. documented in this encounter [facility] 04-13-2023 Instructions Adeel Mejía Maatha - 04/13/2023 3:21 PM EST SEQUENTIAL SCREENINGS The [facility] offers sequential screenings for women who are interested in screenings for chromosomal abnormalities and certain defects during a . The sequential screen combines ultrasound and blood tests to determine the risk of chromosomal abnormalities, including Down's Syndrome (Trisomy 21) and Trisomy 18, as well as open neural tube defects including spina bifida. Ultrasound examination is performed between 11 weeks and 13 weeks gestational age. Blood tests are drawn after the ultrasound and again later in the between 15 and 21 weeks gestational age. Please let your physician know if you are interested in this testing. It will require an appointment with our vascular ultrasound technician. This is not an ultrasound performed by a physician in our office during a routine visit. SIGNS AND SYMPTOMS OF LABOR 1. Contractions every 10 minutes or more often 2. Clear, pink, or brownish fluid (water) leaking from vagina 3. Feeling that baby is pushing down, pressure 4. Low, dull backache 5. Cramps that feel like a period 6. Cramps with or without diarrhea If you notice any of the above symptoms, contact our office at [phone] and ask to speak with a nurse. After hours, you can call doctors registry at [phone] OR call [facility] at [phone] and ask to have the doctor control chemist paged. If you consider this an emergency, dial 9--9 or go to your nearest emergency department. NEED HELP? Are you dealing with a violent or abusive relationship? Are you a victim of rape or sexual assult? Call [facility] ([place]) 24 hour Crisis Hotline: 298.933.7217 or 961-203-6952. MANUAL Your Guide to a Healthy manual is now on-line. Visit [email or web address] to download your free copy documented in this encounter [facility] 03-15-2023 Note HNO ID: [id number] Author: Marian Mejía Ma Service: ? Author Type: ? Type: Progress Notes Filed: 03/15/2023 4:31 PM Note Text: Patient identified by name and date of . Shannon Castillo presents today for a vaccination of Tdap. Patient denies an allergy to latex: yes Patient denies a severe (life-threatening) allergy to a previous dose of Tdap, DTP, DTaP, DT or Td vaccine. Yes Patient denies history of epilepsy or neurological problems: Yes Patient is afebrile and denies being moderately or severely ill: Yes Patient denies history of Guillain-Eccles Syndrome (a severe paralytic illness): Yes Tdap Adacel injection was given without incident. See immunizations for details of immunizations administered today. VIS sheet provided: Yes Provider Dr Solorzano was present in office at time of injection. Marian Mejía Ma [facility] 03-15-2023 Miscellaneous Notes RR- VB No. LOF No. CTXS No. Movement: present. Other c/o: Yes: Other: back pain. Medication list reviewed. Physical Exam See Flow Sheet Abd: soft, nontender, gravid Ext: edema: Trace A/P 28w0d Estimated Date of Delivery: 06/07/23 back pain, likely musculoskeletal- recommend chiropractor or physical therapy 28 week labs ordered, plans to do at plan worksheet given plans condoms for contraception, declines LARC breast pump rx given TDAP today D/w her plan for delivery- repeat c/s recommended. Reviewed risks and benefits of both Naye Solorzano M.D. documented in this encounter [facility] 03-15-2023 History of Presen t illness Narrative Patient identified by name and date of . Shannon Castillo presents today for a vaccination of Tdap. Patient denies an allergy to latex: yes Patient denies a severe (life-threatening) allergy to a previous dose of Tdap, DTP, DTaP, DT or Td vaccine. Yes Patient denies history of epilepsy or neurological problems: Yes Patient is afebrile and denies being moderately or severely ill: Yes Patient denies history of Guillain-Eccles Syndrome (a severe paralytic illness): Yes Tdap Adacel injection was given without incident. See immunizations for details of immunizations administered today. VIS sheet provided: Yes Provider Dr Solorzano was present in office at time of injection. Marian Mejía Ma documented in this encounter [facility] 03-15-2023 Instructions Marian Mejía Ma - 03/15/2023 3:53 PM EST SEQUENTIAL SCREENINGS The [facility] offers sequential screenings for women who are interested in screenings for chromosomal abnormalities and certain defects during a . The sequential screen combines ultrasound and blood tests to determine the risk of chromosomal abnormalities, including Down's Syndrome (Trisomy 21) and Trisomy 18, as well as open neural tube defects including spina bifida. Ultrasound examination is performed between 11 weeks and 13 weeks gestational age. Blood tests are drawn after the ultrasound and again later in the between 15 and 21 weeks gestational age. Please let your physician know if you are interested in this testing. It will require an appointment with our vascular ultrasound technician. This is not an ultrasound performed by a physician in our office during a routine visit. SIGNS AND SYMPTOMS OF LABOR 1. Contractions every 10 minutes or more often 2. Clear, pink, or brownish fluid (water) leaking from vagina 3. Feeling that baby is pushing down, pressure 4. Low, dull backache 5. Cramps that feel like a period 6. Cramps with or without diarrhea If you notice any of the above symptoms, contact our office at [phone] and ask to speak with a nurse. After hours, you can call doctors registry at [phone] OR call [facility] at [phone] and ask to have the doctor control chemist paged. If you consider this an emergency, dial or go to your nearest emergency department. NEED HELP? Are you dealing with a violent or abusive relationship? Are you a victim of rape or sexual assult? Call [facility] ([place]) 24 hour Crisis Hotline: 741.685.6186 or 247-167-1426. MANUAL Your Guide to a Healthy manual is now on-line. Visit [email or web address] to download your free copy documented in this encounter [facility] 02-09-2023 Miscellaneous Notes KJ - No VB/LOF/ctxs. Reports good FM. Headaches are getting better. A&P: MOD - leaning towards a repeat 28wk labs next visit Reviewed PTL & FM precautions Jazmin Dominguez MD documented in this encounter [facility] 02-09-2023 Instructions Chela Goins Ma - 02/09/2023 4:01 PM EDT SEQUENTIAL SCREENINGS The [facility] offers sequential screenings for women who are interested in screenings for chromosomal abnormalities and certain defects during a . The sequential screen combines ultrasound and blood tests to determine the risk of chromosomal abnormalities, including Down's Syndrome (Trisomy 21) and Trisomy 18, as well as open neural tube defects including spina bifida. Ultrasound examination is performed between 11 weeks and 13 weeks gestational age. Blood tests are drawn after the ultrasound and again later in the between 15 and 21 weeks gestational age. Please let your physician know if you are interested in this testing. It will require an appointment with our vascular ultrasound technician. This is not an ultrasound performed by a physician in our office during a routine visit. SIGNS AND SYMPTOMS OF LABOR 1. Contractions every 10 minutes or more often 2. Clear, pink, or brownish fluid (water) leaking from vagina 3. Feeling that baby is pushing down, pressure 4. Low, dull backache 5. Cramps that feel like a period 6. Cramps with or without diarrhea If you notice any of the above symptoms, contact our office at [phone] and ask to speak with a nurse. After hours, you can call doctors registry at [phone] OR call [facility] at [phone] and ask to have the doctor control chemist paged. If you consider this an emergency, dial [phone] or go to your nearest emergency department. NEED HELP? Are you dealing with a violent or abusive relationship? Are you a victim of rape or sexual assult? Call [facility] ([place]) 24 hour Crisis Hotline: 518.681.3901 or 043-929-8725. MANUAL Your Guide to a Healthy manual is now on-line. Visit [email or web address] to download your free copy documented in this encounter [facility] 01-12-2023 Miscellaneous Notes RR- VB No. LOF No. CTXS No. Movement: present. Other c/o: long standing h/o CORDOBA. Magnesium not helping much. Medication list reviewed. Physical Exam See Flow Sheet A/P 19w1d Estimated Date of Delivery: 06/07/23 AFP today reviewed as a screen CORDOBA - recommend reglan and tylenol prn Naye Solorzano M.D. documented in this encounter [facility] 01-12-2023 Instructions Marian Mejía Ma - 01/12/2023 2:44 PM EDT SEQUENTIAL SCREENINGS The [facility] offers sequential screenings for women who are interested in screenings for chromosomal abnormalities and certain defects during a . The sequential screen combines ultrasound and blood tests to determine the risk of chromosomal abnormalities, including Down's Syndrome (Trisomy 21) and Trisomy 18, as well as open neural tube defects including spina bifida. Ultrasound examination is performed between 11 weeks and 13 weeks gestational age. Blood tests are drawn after the ultrasound and again later in the between 15 and 21 weeks gestational age. Please let your physician know if you are interested in this testing. It will require an appointment with our vascular ultrasound technician. This is not an ultrasound performed by a physician in our office during a routine visit. SIGNS AND SYMPTOMS OF LABOR 1. Contractions every 10 minutes or more often 2. Clear, pink, or brownish fluid (water) leaking from vagina 3. Feeling that baby is pushing down, pressure 4. Low, dull backache 5. Cramps that feel like a period 6. Cramps with or without diarrhea If you notice any of the above symptoms, contact our office at [phone] and ask to speak with a nurse. After hours, you can call doctors registry at [phone] OR call [facility] at [phone] and ask to have the doctor control chemist paged. If you consider this an emergency, dial [phone] or go to your nearest emergency department. NEED HELP? Are you dealing with a violent or abusive relationship? Are you a victim of rape or sexual assult? Call [facility] ([place]) 24 hour Crisis Hotline: 694.709.5757 or 474-261-6091. MANUAL Your Guide to a Healthy manual is now on-line. Visit [email or web address] to download your free copy documented in this encounter [facility] 11-04-2022 Note HNO ID: [id number] Author: Naye Solorzano MD Service: ? Author Type: Physician Type: Progress Notes Filed: 11/04/2022 11:32 AM Note Text: OB point of care ultrasound was performed. See imaging tab for details. Marian Mejía Ma INITIAL OB ASSESSMENT OB Provider: Naye Solorzano MD HPI: Shannon is a 32 year old /Multicultural Female here to establish Obstetrical Care. Patient's last menstrual period was 08/31/2022 (exact date). from OB Dating Form. Cycles regular was planned Complaints: None OB History T1 L1 SAB0 IAB0 Ectopic0 Multiple0 Live Births1 Previous history: Prior : yes x 1 History of 4th degree laceration: No History of shoulder dystocia: No History of Hypertensive disorders including pre-eclampsia, chronic hypertension or gestational hypertension: No History of gestational diabetes: No Patient's Risk Screening for delivery: MEDICAL/PSYCHOSOCIAL HISTORY: History of hemorrhage or bleeding concerns: No Thyroid Disease: No History of chronic hypertension: No History of pre-existing diabetes: No ABO/RH(D) Date Value Ref Range Status 01/21/2021 A POSITIVE Final No weight on file for this encounter. History of abnormal pap: No Prior treatment for cervical dysplasia: none. History of STDs: None Tobacco use: No Caffeine use: No Drug use: No Alcohol use: No Multivitamin with Folic acid: Yes Rastafarian or heritage: No Would refuse blood transfusion if medically necessary: No Are you currently employed? Yes, Occupation: [employer], adjunct faculty mathematics department Do you have any history of depression, anxiety, PTSD, eating disorders or other mood problems: No Do you have any safety concerns or history of traumatic events that you would like to discuss with your provider: No Depression: denies, had in past for 2-3 weeks, mild symptoms of depression. 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 PAST SURGICAL HISTORY Procedure Laterality Date DELIVERY ONLY 07/19/2021 LTCS MYRINGOTOMY ASPIRAND/EUSTACHIAN TUBE NFLTJ x2 PAST SURGICAL HISTORY OF wisdom teeth PAST SURGICAL HISTORY OF phrenectomy Current Outpatient Medications Medication Sig Dispense Refill Ztetrpli-Hg-Xye-Fe-FA ( VITAMIN) tab Take 1 tablet by mouth. estradiol (ESTRACE) 0.01 % (0.1 mg/gram) vaginal cream apply approx. 1/2 inch of cream to lower vagina qhs three times weekly (Patient not taking: No sig reported) 42.5 g 0 magnesium oxide (MAG-OX) 400 mg (241.3 mg magnesium) tablet Take 1 tablet by mouth once daily. (Patient not taking: No sig reported) No current facility-administered medications for this visit. Allergies As of Date: 11/04/2022 Allergen Noted Reaction CAFFEINE 12/12/2020 Other: See Comments RED DYE 12/12/2020 Other: See Comments Fully Assessed 11/04/2022 Does patient have penicillin allergy: No REVIEW OF SYSTEMS: GENERAL: Negative for: Fever or Chills HEENT: Negative for: Headache, Impaired Vision, Ringing in Ears, Nosebleeds NECK: Negative for: Swelling, Pain, Stiffness RESPIRATORY: Negative for: Cough, Shortness of breath, Wheezing GASTROINTESTINAL: Negative for: Heartburn, Constipation, Diarrhea, Blood in stool, Vomiting MUSCULOSKELETAL: Negative for: Muscle or joint pain, stiffness, Joint swelling NEUROLOGIC/PSYCHIATRIC: Negative for: Weakness, Paralysis, Numbness, Tingling, Tremor, Anxiety, Depression, Memory loss SKIN: Negative for: Rash, Itching GENITOURINARY: Negative for: vaginal itching, vaginal discharge, hematuria or dysuria PHYSICAL EXAM: LMP 08/31/2022 GENERAL: pleasant in no apparent distress DERMATOLOGY: Normal, without lesions, non-icteric, and non-hirsute NECK: Supple, full range of motion, no adenopathy, and thyroid normal CHEST: Normal inspiratory effort BREAST: soft, non-tender, symmetric, no dominant mass, normal nipple-areolar complex, no lymphadenopathy, and no nipple discharge ABDOMEN: soft, non-tender, and no masses NEURO: alert and oriented x3,exam grossly non-focal PELVIS: External genitalia normal without lesions. Perineal body intact. No vaginal or cervical lesions. Cervix closed. Uterus 8 week size. No adnexal masses or tenderness. Clinical Pelvimetry: Pelvimetry clinically assessed as adequate Limited OB ultrasound exam: single intrauteri (more content not included)... [facility] 11-04-2022 Instructions Marian Mejía Ma - 11/04/2022 10:31 AM EDT Please select the following link to access the [facility] Your Guide to a Healthy . [email or web address] documented in this encounter [facility] 11-04-2022 History of Presen t illness Narrative OB point of care ultrasound was performed. See imaging tab for details. Marian Mejía Ma INITIAL OB ASSESSMENT OB Provider: Naye Solorzano MD HPI: Shannon is a 32 year old /Multicultural Female here to establish Obstetrical Care. Patient's last menstrual period was 08/31/2022 (exact date). from OB Dating Form. Cycles regular was planned Complaints: None OB History T1 L1 SAB0 IAB0 Ectopic0 Multiple0 Live Births1 Previous history: Prior : yes x 1 History of 4th degree laceration: No History of shoulder dystocia: No History of Hypertensive disorders including pre-eclampsia, chronic hypertension or gestational hypertension: No History of gestational diabetes: No Patient's Risk Screening for delivery: MEDICAL/PSYCHOSOCIAL HISTORY: History of hemorrhage or bleeding concerns: No Thyroid Disease: No History of chronic hypertension: No History of pre-existing diabetes: No ABO/RH(D) Date Value Ref Range Status 01/21/2021 A POSITIVE Final No weight on file for this encounter. History of abnormal pap: No Prior treatment for cervical dysplasia: none. History of STDs: None Tobacco use: No Caffeine use: No Drug use: No Alcohol use: No Multivitamin with Folic acid: Yes Rastafarian or heritage: No Would refuse blood transfusion if medically necessary: No Are you currently employed? Yes, Occupation: [employer], adjunct faculty mathematics department Do you have any history of depression, anxiety, PTSD, eating disorders or other mood problems: No Do you have any safety concerns or history of traumatic events that you would like to discuss with your provider: No Depression: denies, had in past for 2-3 weeks, mild symptoms of depression. 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 PAST SURGICAL HISTORY Procedure Laterality Date DELIVERY ONLY 07/19/2021 LTCS MYRINGOTOMY ASPIR&/EUSTACHIAN TUBE NFLTJ x2 PAST SURGICAL HISTORY OF wisdom teeth PAST SURGICAL HISTORY OF phrenectomy Current Outpatient Medications Medication Sig Dispense Refill Lezhijkz-Md-Fpz-Fe-FA ( VITAMIN) tab Take 1 tablet by mouth. estradiol (ESTRACE) 0.01 % (0.1 mg/gram) vaginal cream apply approx. 1/2 inch of cream to lower vagina qhs three times weekly (Patient not taking: No sig reported) 42.5 g 0 magnesium oxide (MAG-OX) 400 mg (241.3 mg magnesium) tablet Take 1 tablet by mouth once daily. (Patient not taking: No sig reported) No current facility-administered medications for this visit. Allergies As of Date: 11/04/2022 Allergen Noted Reaction CAFFEINE 12/12/2020 Other: See Comments RED DYE 12/12/2020 Other: See Comments Fully Assessed 11/04/2022 Does patient have penicillin allergy: No REVIEW OF SYSTEMS: GENERAL: Negative for: Fever or Chills HEENT: Negative for: Headache, Impaired Vision, Ringing in Ears, Nosebleeds NECK: Negative for: Swelling, Pain, Stiffness RESPIRATORY: Negative for: Cough, Shortness of breath, Wheezing GASTROINTESTINAL: Negative for: Heartburn, Constipation, Diarrhea, Blood in stool, Vomiting MUSCULOSKELETAL: Negative for: Muscle or joint pain, stiffness, Joint swelling NEUROLOGIC/PSYCHIATRIC: Negative for: Weakness, Paralysis, Numbness, Tingling, Tremor, Anxiety, Depression, Memory loss SKIN: Negative for: Rash, Itching GENITOURINARY: Negative for: vaginal itching, vaginal discharge, hematuria or dysuria PHYSICAL EXAM: LMP 08/31/2022 GENERAL: pleasant in no apparent distress DERMATOLOGY: Normal, without lesions, non-icteric, and non-hirsute NECK: Supple, full range of motion, no adenopathy, and thyroid normal CHEST: Normal inspiratory effort BREAST: soft, non-tender, symmetric, no dominant mass, normal nipple-areolar complex, no lymphadenopathy, and no nipple discharge ABDOMEN: soft, non-tender, and no masses NEURO: alert and oriented x3,exam grossly non-focal PELVIS: External genitalia normal without lesions. Perineal body intact. No vaginal or cervical lesions. Cervix closed. Uterus 8 week size. No adnexal masses or tenderness. Clinical Pelvimetry: Pelvimetry clinically assessed as adequate Limited OB ultrasound exam: single intrauterine and positive cardiac activity OB Risk Screening: Completed, no positive findings documented. ASSESSMENT: 32 year old at 9w2d wks gestational age PLAN: 1) Patient oriented to practice. Patient given new OB orientation folder. Discussed nutrition, folic acid supplementation, dietary guidelines, exercise, smoking, alcohol, caffeine, and drug use. Discussed gestational weight gain guidelines. Discussed routine OB labs including STD/HIV. Discussed how to access Your guide to a health and the Special Procedures Tech. Discussed aneuploidy and carrier screening. Regarding aneuploidy screening, nuchal translucency/first trimester early anatomy ultrasound and NIPT were discussed. Regarding carrier screening, the myriad screen was discussed. The risks/benefits and limitations of NIPT/aneuploidy screening were reviewed including the potential for false negative and false positive results. We discussed the availability of professional-society guided carrier screening and reviewed the conditions screened and limitations of screening. The availability of genetic counseling was reviewed. Information on aneuploidy/carrier screening was provided. The patient chooses: Aneuploidy screening: chooses to proceed with First trimester early anatomy ultrasound (12-13w6d) and sequential screen and Carrier screening: Declines 2) History of section: Pt counselled regarding TOLAC versus Repeat Section. recommendation medically is repeat c/s. Follow up in 4 weeks or sooner prn. Naye Solorzano MD documented in this encounter [facility] 10-22-2022 Note HNO ID: [id number] Author: Irina Jacobson RN Service: ? Author Type: ? Type: Progress Notes Filed: 10/22/2022 12:18 PM Note Text: # 1 - Date: 07/19/21, Sex: Male, Weight: 6 lb 12 oz (3.062 kg), GA: 37w6d, Delivery: , Low Transverse, Apgar1: 8, Apgar5: 9, Living: Living, Comments: c/s for arrest of descent, pushed x3 hours- failed vacuum, small left broad ligament laceration, EBL 700mL # 2 - Date: None, Sex: None, Weight: None, GA: None, Delivery: None, Apgar1: None, Apgar5: None, Living: None, Comments: None [facility] 10-22-2022 Miscellaneous Notes DISTANCE HEALTH VISIT This Team Access Model visit is a phone encounter. It required patient-provider interaction for the medical decision making as documented below. Shannon Castillo is a 32 year old female seen for PNOB visit. Patient has a history for of a for failed vacuum and a arrest of descent after pushing for 3 hours. Patient would like to have a . I have discussed with her that operative report does not recommend a trial of labor after for any future pregnancies. EMMIs on and ordered . She will discuss with Dr. Solorzano at her new OB appointment. Patient desires nuchal ultrasound but declines sequential testing/NIPT. Patient declines genetic carrier screening testing.Irina Jacobson RN documented in this encounter [facility] 10-22-2022 History of Presen t illness Narrative # 1 - Date: 07/19/21, Sex: Male, Weight: 6 lb 12 oz (3.062 kg), GA: 37w6d, Delivery: , Low Transverse, Apgar1: 8, Apgar5: 9, Living: Living, Comments: c/s for arrest of descent, pushed x3 hours- failed vacuum, small left broad ligament laceration, EBL 700mL # 2 - Date: None, Sex: None, Weight: None, GA: None, Delivery: None, Apgar1: None, Apgar5: None, Living: None, Comments: None documented in this encounter [facility] 09-01-2021 History of Presen t illness Narrative VISIT Shannon Castillo is a 31 year old year old here for visit. Delivery Summary: C-s ROS/ Recovery: Feeding: Breast feeding problems: None Menses since delivery: stopped Menstrual pattern prior to : Regular periods [place] since delivery: Resumed Depression: denies symptoms of depression. OB Depression and Anxiety Screening- This Encounter (since 08/31/2021) Over the past 2 weeks have you felt down, depressed, or hopeless? Negative Over the past two weeks, have you felt little interest or pleasure in doing things? Negative Feeling nervous, anxious or on edge 0-Not at all Not being able to stop or control worrying 0-Not al all Anxiety Pre-Screening Total (If >/= 3 additional questions will be reviewed) 0 Emotional support: Yes Bowel symptoms: Negative for abdominal discomfort, blood in stools or black stools and change in bowel habits Abdomen: She reports no incisional redness, tenderness, erythema Bladder symptoms: No dysuria, gross hematuria, urinary frequency, urinary urgency, or incontinence Other issues: None Last Pap: 2020 normal HPV: negative History reviewed. No pertinent past medical history. PAST SURGICAL HISTORY Procedure Laterality Date DELIVERY ONLY 07/19/2021 LTCS MYRINGOTOMY ASPIR&/EUSTACHIAN TUBE NFLTJ x2 PAST SURGICAL HISTORY OF wisdom teeth PAST SURGICAL HISTORY OF phrenectomy FAMILY HISTORY Problem Relation Age of Onset Hypertension Mother other (saliva gland cancer) Mother other (ankylosis) Father Cancer Father No Known Problems Brother No Known Problems Maternal Grandmother other (bone cancer) Maternal Grandfather Cancer Paternal Grandmother Systemic Lupus Erythematosus Paternal Grandmother No Known Problems Paternal Grandfather Social History Tobacco Use Smoking status: Never Smoker Smokeless tobacco: Never Used Vaping Use Vaping Use: Never used Substance Use Topics Alcohol use: Not Currently Comment: socially Drug use: Never PHYSICAL EXAMINATION: Ht 5' 2 (1.58m) Wt 136 lb (61.7kg) LMP 10/27/2020 BMI 24.87 kg/(m^2). GENERAL: pleasant, female in no apparent distress HEENT: Normocephalic, atraumatic, mucus membranes moist and no lesions NECK: Supple, full range of motion, no adenopathy and thyroid normal DERMATOLOGY: Normal, without lesions, non-icteric and non-hirsute BREAST: soft, non-tender, symmetric, no dominant mass, normal nipple-areolar complex, no lymphadenopathy and no nipple discharge CHEST: Normal inspiratory effort ABDOMEN: soft, non-tender and no masses. INCISION: No incisional redness, swelling, or drainage PELVIC: external genitalia normal, normal Bartholin's glands, urethra, Carte[place]'s glands, no vulvar lesions, no cervical lesions, good vaginal support, physiologic discharge present, normal appearing perineal body and perianal region, tight ring in introitus- possibly scarred band, able to digiitally palpate past it BIMANUAL: uterus normal size, shape and consistency, no adnexal masses and non-tender NEURO: alert and oriented x3,exam grossly non-focal EXTREMITIES: normal ASSESSMENT AND PLAN: 31 year old status post CS with normal course. Contraception plan: condoms Follow up: RTC for annual exams and PRN tria vaginal estrogen for vaginal atrophy and band. Naye Solorzano MD documented in this encounter [facility] 08-05-2021 History of Presen t illness Narrative EARLY VISIT Shannon Castillo is a 31 year old here for 2 week visit. Delivery Summary: complete and pushing c/s ROS: General: Denies any fever or chills Hypertension Screening: Headache? No. Visual Changes? No Epigastric Pain? No Increased Swelling? No Taking any BP medications at home? No If applicable, monitoring BP at home? (If Yes, include results) NA Mood: normal Depression: denies symptoms of depression. OB Depression and Anxiety Screening- This Encounter (since 08/04/2021) None Feeding: Breast feeding problems: None Bladder: No dysuria, gross hematuria, urinary frequency, urinary urgency, or incontinence Bowel symptoms: Negative for abdominal discomfort, blood in stools or black stools and change in bowel habits Abdomen: She reports no incisional redness, tenderness, erythema Bleeding: spotting Bottom and Perineum: No issues Sleep: no sleep concerns, feels rested PHYSICAL EXAMINATION: Wt 135 lb (61.2 kg) LMP 10/27/2020 (Exact Date) Yes BMI 24.69 kg/m General: pleasant,female in no apparent distress, A&O x 3. Skin warm and intact. Breast: Deferred Abdomen: Deferred /Incision: No incisional redness, swelling, or drainage Pelvic: Deferred Bimanual: Deferred ASSESSMENT AND PLAN: 1. 31 year old status post with normal course. 2. Contraception plan: Oral contraceptives . Reinforced 6-week pelvic rest. Encouraged condom usage should patient deviate. 3. Education: resources provided - see MA/RN note Follow up: Return to Clinic for 6 week visit and as needed Medical Decision Making Naye Solorzano MD documented in this encounter [facility] documented as of this encounter (statuses as of 09/01/2021) [facility]11-08-2021 History of Past illness Narrative* Problem Noted Date Resolved Date COVID-19 vaccine series declined 03/17/2021 09/01/2021 Overview: 03/17/2021 Discussed recommendation for covid vaccination in and reviewed current guidelines and literature. Discussed risks of covid infection in . Patient declines vaccination. Encounter for supervision of normal first in first trimester 12/25/2020 09/01/2021 documented as of this encounter (statuses as of 10/22/2022) [facility]-08-2021 History of Past illness Narrative* Problem Noted Date Resolved Date COVID-19 vaccine series declined 03/17/2021 09/01/2021 Overview: 03/17/2021 Discussed recommendation for covid vaccination in and reviewed current guidelines and literature. Discussed risks of covid infection in . Patient declines vaccination. Encounter for supervision of normal first in first trimester 12/25/2020 09/01/2021 documented as of this encounter (statuses as of 11/04/2022) [facility] History of Past illness Narrative* Problem Noted Date Resolved Date COVID-19 vaccine series declined 03/17/2021 09/01/2021 Overview: 03/17/2021 Discussed recommendation for covid vaccination in and reviewed current guidelines and literature. Discussed risks of covid infection in . Patient declines vaccination. Encounter for supervision of normal first in first trimester 12/25/2020 09/01/2021 documented as of this encounter (statuses as of 11/04/2022) [facility] [facility] History of Past illness Narrative* Problem Noted Date Diagnosed Date Resolved Date COVID-19 vaccine series declined 03/17/2021 09/01/2021 Overview: 03/17/2021 Discussed recommendation for covid vaccination in and reviewed current guidelines and literature. Discussed risks of covid infection in . Patient declines vaccination. SW Encounter for supervision of normal first in first trimester 12/25/2020 09/01/2021 documented as of this encounter (statuses as of 01/13/2023) [facility]21 History of Past illness Narrative* Problem Noted Date Diagnosed Date Resolved Date COVID-19 vaccine series declined 03/17/2021 09/01/2021 Overview: 03/17/2021 Discussed recommendation for covid vaccination in and reviewed current guidelines and literature. Discussed risks of covid infection in . Patient declines vaccination. SW Encounter for supervision of normal first in first trimester 12/25/2020 09/01/2021 documented as of this encounter (statuses as of 01/13/2023) [facility]11-08-2021 History of Past illness Narrative* Problem Noted Date Diagnosed Date Resolved Date COVID-19 vaccine series declined 03/17/2021 09/01/2021 Overview: 03/17/2021 Discussed recommendation for covid vaccination in and reviewed current guidelines and literature. Discussed risks of covid infection in . Patient declines vaccination. SW Encounter for supervision of normal first in first trimester 12/25/2020 09/01/2021 documented as of this encounter (statuses as of 02/10/2023) [facility]2021 History of Past illness Narrative* Problem Noted Date Diagnosed Date Resolved Date COVID-19 vaccine series declined 03/17/2021 09/01/2021 Overview: 03/17/2021 Discussed recommendation for covid vaccination in and reviewed current guidelines and literature. Discussed risks of covid infection in . Patient declines vaccination. SW Encounter for supervision of normal first in first trimester 12/25/2020 09/01/2021 documented as of this encounter (statuses as of 03/16/2023) [facility]21 History of Past illness Narrative* Problem Noted Date Diagnosed Date Resolved Date COVID-19 vaccine series declined 03/17/2021 09/01/2021 Overview: 03/17/2021 Discussed recommendation for covid vaccination in and reviewed current guidelines and literature. Discussed risks of covid infection in . Patient declines vaccination. SW Encounter for supervision of normal first in first trimester 12/25/2020 09/01/2021 documented as of this encounter (statuses as of 04/14/2023) [facility] note* Diagnosis Status post section routine follow-up- Primary Routine follow-up documented in this encounter [facility] note* Diagnosis care and examination- Primary Routine follow-up documented in this encounter [facility] note* Diagnosis with history of section, antepartum- Primary Patient request for diagnostic testing Other specified examination documented [facility] this encounter [facility]* Diagnosis Encounter for supervision of other normal in first trimester- Primary of unknown anatomic location state, incidental documented in this encounter [facility]* Diagnosis with uncertain dates in first trimester- Primary with history of section, antepartum Encounter for screening of mother Unspecified screening Encounter for supervision of other normal in first trimester documented in this encounter [facility]* Diagnosis 19 weeks gestation of - Primary state, incidental with history of section, antepartum documented [facility]* Diagnosis Encounter for anatomic survey- Primary with history of section, antepartum Encounter for screening of mother Unspecified screening 19 weeks gestation of state, incidental documented in this encounter [facility] note* Diagnosis with history of section, antepartum- Primary 23 weeks gestation of state, incidental documented in this encounter [facility] note* Diagnosis with history of section, antepartum- Primary 28 weeks gestation of state, incidental Need for vaccination Need for prophylactic vaccination and inoculation against unspecified single disease documented in this encounter [facility]* Diagnosis with history of section, antepartum- Primary Encounter for supervision of other normal in third trimester 32 weeks gestation of state, incidental [facility] Diagnostic Procedure Only (Routine) - Pending Review Specialty Diagnoses / Procedures Referred By Carlos serna Referred To Contact [facility] Diagnoses with history of section, antepartum Encounter for screening of mother Encounter for supervision of other normal in first trimester Procedures NUCHAL TRANSLUCENCY WHI US NUCHAL TRANSLUCENCY 1ST GESTATION Naye Solorzano MD [address] [place] [address] [facility] [address] [place] [address] Referral ID Status Reason Start Date Expiration Date Visits Requested Visits Authorized [id number] Pending Review Auto-Generat ed Referral 11/04/2022 11/04/2023 1 1 [facility] Summary Purpose Family History No Family History Records Found Mother Name Dates Details Family history of hypertensi on(V17.49, Z82.49) Status:Active Family history of Salivary g land cancer(142.9, C08.9) Status:Active Father Name Dates Details Family history of lung cance r(V16.1, Z80.1) Status:Active Family history of ankylosing spondylitis(V17.89, Z82.69) Status:Active Advance Directives No Advanced Directives Records FoundNo Advanced Directives Records FoundNo Advanced Directives Records FoundNo Advanced Directives Records FoundNo Advanced Directives Records FoundNo Advanced Directives Records Found Hospital Course Note Therapy Diagnosis Assessed A cute right ankle pain (719.47,338.19) (M25.571) Plan Goals: Goals set and discussed today. PATIENT WILL BE INDEPENDENT WITH HEP ANKLE ROM WILL BE WFL IN ALL PLANES WITH NO PAIN GAIT NON-ANTALGIC WITH ALL ADL'S., by week 2, goal met Balance: GOOD S/L LEG STANCE BALANCE 10-15 , by week 4, goal met Pain: PATIENT EILEEN DENY PAIN WITH GAIT AND WORK ACTIVITIES., by week 4, goal met Strength: RIGHT ANKLE STRENGTH WILL BE >= 4/5 TO 4+/5., by week 4, goal met , PATIENT WILL ASCEND AND DESCEND 10-12 STEPS RECIPROCALLY WITH GOOD ECCENTRIC CONTROL., by week 4, goal met Planned interventions include: cryotherapy, education/instruction, electrical stimulation, gait training, home program, manual therapy, neuromuscular re-education and therapeutic exercises. Frequency and duration: No further visits planned. Potential to achieve rehab goals is excellent Discharge patient:. Plan of care was developed with input and agreement by the patient. Assessment Patient has met goals a (more content not included)... Health Concerns Problem Noted Date [facility] 10[facility]09 [place] 11/04/2022 Problem Noted Date [facility] 10[facility]09 [facility] [place] 11/04/2022 Problem Noted Date Diagnosed Date [facility] 11/04/2022 [facility] [place] 11/04/2022 Problem Noted Date Diagnosed Date [facility] 11/04/2022 [facility] [place] 11/04/2022 Problem Noted Date Diagnosed Date [facility] 11/04/2022 [facility] [place] 11/04/2022 Problem Noted Date Diagnosed Date [facility] 11/04/2022 [facility] [place] 11/04/2022 Problem Noted Date Diagnosed Date [facility] 11/04/2022 [facility] [place] 11/04/2022 Additional Source Comments INFORMATION SOURCE (unrecogn ized section and content) DATE CREATED AUTHOR AUTHOR'S ORGANIZ ATION 04/18/2018 [facility] DATE CREATED AUTHOR AUTHOR'S ORGANIZ ATION 02/24/2020 [facility] DATE CREATED AUTHOR AUTHOR'S ORGANIZ ATION 04/26/2020 [employer] DATE CREATED AUTHOR AUTHOR'S ORGANIZ ATION 03/26/2023 [facility] DATE CREATED AUTHOR AUTHOR'S ORGANIZ ATION 06/01/2023 [facility] Source Comments (unrecognize d section and content) In the event this informatio n is protected by the Federal Confidentiality of Alcohol and Drug Abuse Patient Records regulations: The Federal rules restrict any use of the information to criminally investigate or prosecute any alcohol or drug abuse patient.[facility] the event this information is protected by the Federal Confidentiality of Alcohol and Drug Abuse Patient Records regulations: The Federal rules restrict any use of the information to criminally investigate or prosecute any alcohol or drug abuse patient.[facility] the event this information is protected by the Federal Confidentiality of Alcohol and Drug Abuse Patient Records regulations: The Federal rules restrict any use of the information to criminally investigate or prosecute any alcohol or drug abuse patient.[facility] the event this information is protected by the Federal Confidentiality of Alcohol and Drug Abuse Patient Records regulations: The Federal rules restrict any use of the information to criminally investigate or prosecute any alcohol or drug abuse patient.[facility] the event this information is protected by the Federal Confidentiality of Alcohol and Drug Abuse Patient Records regulations: The Federal rules restrict any use of the information to criminally investigate or prosecute any alcohol or drug abuse patient.[facility] the event this information is protected by the Federal Confidentiality of Alcohol and Drug Abuse Patient Records regulations: The Federal rules restrict any use of the information to criminally investigate or prosecute any alcohol or drug abuse patient.[facility] the event this information is protected by the Federal Confidentiality of Alcohol and Drug Abuse Patient Records regulations: The Federal rules restrict any use of the information to criminally investigate or prosecute any alcohol or drug abuse patient.[facility] the event this information is protected by the Federal Confidentiality of Alcohol and Drug Abuse Patient Records regulations: The Federal rules restrict any use of the information to criminally investigate or prosecute any alcohol or drug abuse patient.[facility] the event this information is protected by the Federal Confidentiality of Alcohol and Drug Abuse Patient Records regulations: The Federal rules restrict any use of the information to criminally investigate or prosecute any alcohol or drug abuse patient.[facility] the event this information is protected by the Federal Confidentiality of Alcohol and Drug Abuse Patient Records regulations: The Federal rules restrict any use of the information to criminally investigate or prosecute any alcohol or drug abuse patient.[facility] Reason for Visit (unrecogniz ed section and content) Specialty Diagnoses / Procedures Referred By Contac t Referred To Contact [facility] Diagnoses with history of section, antepartum Encounter for screening of mother Procedures OBSTETRIC ULTRASOUND WHI US PREG UTERUS AFTER 1ST TRIMEST GESTATION Naye Solorzano MD [address] [place] [address] [facility] [address] [place] [id number] Referral ID Status Reason Start Date Expiration Date Visits Requested Visits Authorized [id number] Authorized Auto-Generat ed Referral 11/07/2022 05/09/2023 20 20 Reason Comments Early Reason Comments Routine Reason Comments Care Reason Comments Initial OB Visit Reason Onset Date Comments Care 01/12/2023 Reason Onset Date Comments Care 02/09/2023 Reason Onset Date Comments Care 03/15/2023 Reason Onset Date Comments Care 04/13/2023 FOR RECORDS PERTAINING TO PATIENTS WHO ARE OR HAVE BEEN ENROLLED IN A CHEMICAL DEPENDENCY/SUBSTANCEABUSE PROGRAM, SOME INFORMATION MAY BE OMITTED. This clinical summary was aggregated from multiple sources. Caution should be exercised in using it in the provision of clinical care. This summary normalizes information from multiple sources, and as a consequence, information in this document may materially change the coding, format and clinical context of patient data. In addition, data may be omitted in some cases. CLINICAL DECISIONS SHOULD BE BASED ON THE PRIMARY CLINICAL RECORDS. [facility]. provides no warranty or guarantee of the accuracy or completeness of information in this document.
[2023-06-02] MEDS: Lactated Ringers 1,000 ML 999 ML IV (05:45)
[2023-06-02 06:01] LABS: Hematocrit 36.2 % (37-47); Hemoglobin 12.3 g/dL (12.0-15.0); Mean Corpuscular Hgb 30.8 pg (27.0-32.0); Mean Corpuscular Volume 90.5 fL (81-99); Mean Platelet Vol. 10.4 fl (6.2-12.0); POSITIVE COUNT YES; POSITIVE MORPHOLOGY YES; Platelet Count 152 K/mm3 (150-450); RBC Distribution Width CV 13.5 % (11.6-14.6); RBC Distribution Width SD 44.1 fl (35.1-43.9); White Blood Count 9.7 K/mm3 (4.4-11.0)
[2023-06-02 06:02] LABS: Differential Indicated MANUAL DIFF
[2023-06-02] MEDS: Lactated Ringers 1,000 ML 150 ML IV (06:44)
[2023-06-02 07:03] LABS: Lymphocyte 16 % (19-41); Monocyte 12 % (0-10); Myelocyte 3 % (0-0); Neutrophil-Segmented 67 % (47-70); Total Cells Counted 100 (MANUAL DIFF)
[2023-06-02] MEDS: Acetaminophen 500 MG Tablet 1000 MG PO ×3 (07:04→18:39)
[2023-06-02] MEDS: Sodium Citrate/Citric Acid 30 ML UDC PO (07:04)
[2023-06-02 07:05] LABS: Absolute Lymphocyte Count 1.55 X10^3/uL (0.83-4.51); Absolute Neutrophil Count 6.5 X10^3/uL (2.0-7.7)
[2023-06-02] MEDS: Cefazolin 2 GM in 0.9% Normal Saline (100mL Bag) 100 ML IV (07:10)
--- NOTE | 2023-06-02 08:19 | OP.PCM_ITS ---
Assessment & Plan (1) Encounter for supervision of other normal , third trimester: (2) 39 weeks gestation of : (3) delivery delivered: (4) Outcome of delivery, single liveborn: Maternal Data Information Final RAFAELA: 06/07/23 Gestational age: 39 2/7 Details Operative Information Date of Procedure: 06/02/23 Pre-Operative Diagnosis: previous c/s Post-Operative Diagnosis: same Indications for : Repeat Elective Classification: Scheduled Procedure Type: low transverse chief executive officer #1: Celina Sorenson chief executive officer #2: Marlen Cervantes MS3 Type of Anesthesia: Spinal Anesthesiologist: Rock Cesar Special Medications: duramorph Antibiotic Given: Ancef 2 grams IV x1 Drain: Lang to straight drain Estimated Blood Loss: 500 Fluids Replaced: 1500 Procedure Start Time: 07:43 Procedure Stop Time: 08:16 Time of Delivery: 07:46 Findings Description of Procedure: The patient was taken to the operating room. She was prepped and draped in the dorsal supine position with a leftward tilt. A Pfannenstiel skin incision was made approximately 2 cm above the symphysis pubis and carried through to underlying layer fascia with the scalpel. The fascia was incised incised in the midline and extended laterally with the Vann scissors. The fascia was dissected off the rectus muscles with blunt and sharp dissection. The rectus muscles were in the midline and the peritoneum was entered bluntly. The peritoneal incision was stretched and the bladder blade was placed. The uterine incision was made in a low transverse fashion with the scalpel and extended superiorly and inferiorly with blunt dissection. The amniotic membranes were ruptured bluntly and clear amniotic fluid returned. The 's head was brought to the incision in the flexed position and delivered without difficulty. The remainder of the infant was delivered with gentle traction and fundal pressure in the standard fashion. The mouth and nares were bulb suctioned. The cord was clamped and cut as the was stimulated. The infant was handed off to the waiting nursing staff. The placenta was delivered with fundal massage and gentle traction in the standard fashion. The uterus was exteriorized and cleared of all clots and debris. The cervix was dilated with a ring forcep. The uterine incision was closed with #1 Vicryl in a running locked fashion. 2 [id number] 0 Vicryl sutures were needed to obtain hemostasis and a bleeding sinus. The incision was examined and was found to be hemostatic. The uterus was placed back into the peritoneal cavity and hemostasis was again confirmed. The rectus muscles were examined and any bleeding was Bovie cauterized. The parietal peritoneum and rectus muscles were closed en bloc with an 0 Vicryl running suture. The rectus fascia was examined and any bleeding was Bovie cauterized and the rectus fascia was closed with 1 Vicryl suture in a running standard fashion. The subcutaneous tissue was examining and any bleeding was Bovie cauterized. The subcutaneous tissue was reapproximated with 3-0 Vicryl suture. The skin was closed in a subcuticular fashion by the RESERVOIR ENGINEER with me present in the labor and delivery suite. I performed the remainder of the procedure with assistance. All sponge, lap, and needle counts were correct. The patient was taken to her room for recovery in a stable condition. Presentation: Positive for Vertex Amniotic Membrane Rupture Type: Artificial Amniotic Fluid Description: Clear Placental Delivery Description: Manual Removal Placenta Disposition: [facility] Specimen(s) Sent to Pathology: none Cord Vessel Description: 3 Vessels Cord Entanglement: None Infant A Gender: Female (1 minute): 8 (5 minute): 9 Delayed Cord Clamping: No Complications Complications: none Admit VTE Documentation VTE Present on Admission: No VTE Mechan Device Prophylaxis: SCD's VTE Pharm Prophylaxis Ordered: No Reason Prophylaxis Not Ordered: Procedure Not Indicated
[2023-06-02] MEDS: Oxytocin 15 Units/NS 250ml 15 UNITS/250 ML IV.SOLN 83 UNITS IV (08:30)
[2023-06-02] MEDS: Senna/Docusate Sodium 1 Tablet PO (09:16)
[2023-06-02] MEDS: Ketorolac 30 MG/ML Syringe IV ×3 (09:16→21:01)
--- NOTE | 2023-06-02 09:28 | NURSING ---
0900- small quarter size clot expressed.
--- NOTE | 2023-06-02 09:36 | NURSING ---
0930-noted another quarter size clot prior to palpating the fundus.
[2023-06-02 10:03] LABS: Syphilis Antibodies Non-reactive
[2023-06-02] MEDS: Lactated Ringers 1,000 ML 100 ML IV (11:35)
[2023-06-03] MEDS: Acetaminophen 500 MG Tablet 1000 MG PO ×4 (01:06→19:33)
[2023-06-03] MEDS: 0.9% Saline Lock 10 ML Syringe IV (03:17)
[2023-06-03] MEDS: Ketorolac 30 MG/ML Syringe IV (03:17)
[2023-06-03 03:22] VITALS: BP 99/58; PULSE 92; RESP 16; O2SAT 97
[2023-06-03 06:15] LABS: Hematocrit 30.6 % (37-47); Hemoglobin 10.5 g/dL (12.0-15.0); Mean Corp Hgb Conc 34.3 g/dL (32-36); Mean Corpuscular Hgb 31.6 pg (27.0-32.0); Mean Corpuscular Volume 92.2 fL (81-99); Mean Platelet Vol. 9.7 fl (6.2-12.0); Platelet Count 132 K/mm3 (150-450); RBC Distribution Width CV 13.5 % (11.6-14.6); RBC Distribution Width SD 45.1 fl (35.1-43.9); Red Blood Count 3.32 M/mm3 (4.2-5.4); White Blood Count 11.4 K/mm3 (4.4-11.0)
--- NOTE | 2023-06-03 07:27 | PCM.PN.OB ---
Subjective Subjective Patient seen at bedside. Feeling well. Pain is controlled. Patient ambulating and voiding without difficulty. Passing flatus. Denies any CP, SOB or dizziness. with minimal support. Objective Data Objective Data Vital Signs: Vital Signs Temp Pulse Resp BP Pulse Ox O2 Del Method 98.3 F 92 16 99/58 L 97 Room Air 06/02/23 20:09 06/03/23 03:22 06/03/23 03:22 06/03/23 03:22 06/03/23 03:22 06/03/23 03:22 Oxygen Delivery Method Room Air Weight: 151 lb 10.848 oz Body Mass Index (BMI) 27.7 Intake & Output: Intake and Output for Last 24 Hours 06/01/23 06/02/23 06/03/23 23:59 23:59 23:59 Intake Total 4110.00 / 4110.00 Output Total 2690 / 2690 700 / 700 Balance 1420.00 / 1420.00 -700 / -700 Lab / Micro Data 06/03/23 06:05 Labs: Laboratory Results - last 24 hr 06/02/23 05:45: Syphilis Total Ab Non-reactive 06/03/23 06:05: WBC 11.4 H, RBC 3.32 L, Hgb 10.5 L, Hct 30.6 L, MCV 92.2, MCH 31.6, MCHC 34.3, RDW Std Deviation 45.1 H, RDW Coeff of [place] 13.5, Plt Count 132 L, MPV 9.7 ROS Eyes Eyes: Denies blurry vision, change in vision or spots in vision ENT HEENT: Denies dizziness or headache(s) Cardiovascular Cardiovascular: Denies abdominal pain, chest pain or dyspnea Respiratory/Chest Respiratory/Chest: Denies cough, dyspnea, shortness of breath at rest or shortness of breath with exertion Gastrointestinal Gastrointestinal: Denies abdominal pain, diarrhea or vomiting Genitourinary Genitourinary: Denies change in urinary stream, difficulty urinating or dysuria Musculoskeletal Musculoskeletal: Reports none Integumentary Integumentary: Denies rash Neurologic Neurologic: Denies dizziness, headache(s), memory loss or weakness Physical Exam Narrative Dressing is dry and intact Const alert and no apparent distress General Appearance: cooperative and comfortable Exam Limitations: no limitations HEENT normocephalic Eyes General Eye: normal appearance of both eyes Neck full ROM General: normal visual inspection Chest Chest: symmetrical chest wall rise Resp normal respiratory effort and normal air movement Effort and Inspection: symmetric chest movement Auscultation: clear to auscultation bilaterally Cardio regular rate and regular rhythm GI normal to inspection, nondistended, normoactive bowel sounds Back/Spine normal ROM Extremity full ROM and no calf tenderness General Extremity: normal exam except as noted Skin no rashes or lesions noted Neuro CN's II-XII intact bilaterally Psych mental status grossly normal Assessment & Plan (1) delivery delivered: (2) Care and examination of lactating mother: PLAN: Plan POD 1 C/S Increase ambulation Pain control support Anticipate discharge home tomorrow
[2023-06-03 08:00] VITALS: BP 110/66; PULSE 77; RESP 16; TEMP 36.6; O2SAT 98
[2023-06-03] MEDS: Ibuprofen 600 MG Tablet PO ×3 (09:03→20:10)
[2023-06-03] MEDS: SimETHICONE 80 MG Chewable Tablet PO ×2 (09:05→20:09)
[2023-06-03] MEDS: Senna/Docusate Sodium 1 Tablet PO (09:05)
[2023-06-03 10:32] LABS: Pathologist Review Reviewed
[2023-06-03 14:30] VITALS: BP 101/53; PULSE 76; RESP 18; TEMP 36.6; O2SAT 97
[2023-06-03 20:10] VITALS: BP 107/66; PULSE 83; RESP 15; TEMP 36.7; O2SAT 98
[2023-06-04] MEDS: Acetaminophen 500 MG Tablet 1000 MG PO ×2 (01:50→07:28)
[2023-06-04 01:55] VITALS: BP 100/57; PULSE 80; RESP 15; TEMP 36.7; O2SAT 96
[2023-06-04] MEDS: Ibuprofen 600 MG Tablet PO ×2 (03:27→09:05)
--- NOTE | 2023-06-04 08:28 | PN.OBGYN_ITS ---
Subjective Subjective Doing well per patient and nursing staff. Ambulating and taking PO without difficulty. Voiding and passing flatus. Pain controlled. , services for assistance. Denies headache, visual changes, chest pain, shortness of breath, leg pain or increased bleeding. Lochia normal. Objective Data Objective Data Vital Signs: Vital Signs Temp Pulse Resp BP Pulse Ox O2 Del Method 98.0 F 80 15 100/57 L 96 Room Air 06/04/23 01:55 06/04/23 01:55 06/04/23 01:55 06/04/23 01:55 06/04/23 01:55 06/04/23 01:55 Oxygen Delivery Method Room Air Weight: 151 lb 10.848 oz Body Mass Index (BMI) 27.7 Intake & Output: Intake and Output for Last 24 Hours 06/02/23 06/03/23 06/04/23 23:59 23:59 23:59 Intake Total 4110.00 / 4110.00 1000 / 1000 Output Total 2690 / 2690 700 / 700 Balance 1420.00 / 1420.00 300 / 300 Lab / Micro Data 06/03/23 06:05 Labs: Laboratory Results - last 24 hr 06/02/23 05:45: Diff Path Review Reviewed ROS Constitutional Constitutional: Reports systems reviewed and no addt'l complaints, except as documented; Denies headache(s) Eyes Eyes: Denies acute decrease in peripheral vision, blurry vision or change in vision ENT HEENT: Reports systems reviewed and no addt'l complaints, except as documented Cardiovascular Cardiovascular: Denies chest pain or dizziness Respiratory/Chest Respiratory/Chest: Denies cough, dyspnea, dyspnea on exertion, shortness of b reath at rest or shortness of breath with exertion Gastrointestinal Gastrointestinal: Denies abdominal pain, diarrhea, nausea or vomiting Genitourinary Genitourinary: Denies abdominal discomfort Musculoskeletal Musculoskeletal: Denies limited range of motion Integumentary Integumentary: Reports systems reviewed and no addt'l complaints, except as documented Neurologic Neurologic: Reports systems reviewed and no addt'l complaints, except as documented Psychiatric Psychiatric: Reports systems reviewed and no addt'l complaints, except as documented Endocrine Endocrinology: Reports systems reviewed and no addt'l complaints, except as documented Hematologic/Lymphatic Hematologic/Lymphatic: Reports systems reviewed and no addt'l complaints, except as documented Allergic/Immunologic Allergic/Immunologic: Reports systems reviewed and no addt'l complaints, except as documented Physical Exam Const alert and oriented x3 General Appearance: cooperative Orientation / Consciousness: awake, oriented to person, oriented to place and oriented to time Exam Limitations: no limitations HEENT normocephalic Head and Scalp: normal to inspection, normocephalic and atraumatic Face and Sinus: normal facial exam Eyes General Eye: normal appearance of both eyes Neck full ROM Chest Chest: symmetrical chest wall rise Resp normal respiratory effort and normal air movement Auscultation: clear to auscultation bilaterally Cardio regular rate, regular rhythm, S1 normal heart sound, S2 normal heart sound, no murmurs, no rub, no gallops and no clicks GI normal to inspection, nondistended, normoactive bowel sounds and non-tender GI Narrative: Dressing dry and intact appearance of the vagina normal Bladder / Kidney Exam: no CVA tenderness Back/Spine normal ROM Extremity normal to inspection and full ROM Skin no rashes or lesions noted Neuro oriented x3, CN's II-XII intact bilaterally and moves all extremities Sensorium / Orientation: awake, alert and oriented to person Motor Exam: clonus absent Deep Tendon Reflexes: Rt Patellar (L4): 2+ and Lt Patellar (L4): 2+ Assessment & Plan (1) Care and examination of lactating mother: (2) delivery delivered: PLAN: Plan 1) Routine postoperative care 2) VS stable 3) I&O 4) Pain management 5) Planning D/C home today
--- NOTE | 2023-06-04 08:30 | PCM.DC.SUM ---
Providers Date of Admission: 06/02/23 Primary Care Physician: Sandra Primary Care Phys Reason For Visit: C SECTION/REPEAT C SECTION DELIVERY Diagnosis Discharge Diagnosis (1) Care and examination of lactating mother: Status: Acute Code(s): Z39.1 - Encounter for care and examination of lactating mother (2) delivery delivered: Status: Acute Code(s): O82 - Encounter for delivery without indication Plan 1) Routine postoperative care 2) VS stable 3) I&O 4) Pain management 5) Planning D/C home today Medications at Discharge Home Medications [id number] 1 mg tablet 1 tab PO DAILY vitamin 07/18/21 magnesium PO DAILY 06/02/23 acetaminophen 500 mg tablet 1,000 mg (2 x 500 mg) PO Q6H #0 tabs 06/04/23 ibuprofen 600 mg tablet 600 mg PO Q6H #0 tabs 06/04/23 Hospital Course Operations section Procedures None Summary of Care Provided Minutes Spent on Discharge: 15 Hospital Course: Presents for repeat section on 06/02/23. Postoperative course uneventful. Discharge home on POD #2. Weight / BMI Weight Weight: 151 lb 10.848 oz Body Mass Index (BMI) 27.7 ABG / Lab / Microbiology Data 06/03/23 06:05 Laboratory: Laboratory Results - last 24 hr 06/02/23 05:45: Diff Path Review Reviewed D/C Instructions Discharge Diet: No restrictions Discharge Activity: May Not Drive and May Shower May resume sexual activity in: 6 weeks Weight Bearing Status: Full weight bearing Lifting Restricted to (Lbs): 20 Call your doctor if your incision/area has: Continuous Slow Oozing, Increased Pain/ Swelling and Foul Smelling Discharge Call your doctor if you observe: Fever of 101 or Higher, Inability to urinate, Inability to have a bowel movement, Shortness of breath, Chest pain, Increased palpitations (irregular heartbeat), Calf discomfort and Uncontrolled pain Suture Line Care: Avoid Pulling/Pushing Remove Dressing in: 3 days Cleanse incision/area with: Soap & Water Please Follow Up With: Vane Matthew MD When: 1 week incision check and 6 weeks PP Meaningful Use Info Meaningful Use Diagnoses (Choose all that apply): None applicable Discharge Plan Admission Admit Date/Time: 06/02/23 05:10 Primary Reason for Your Visit: Repeat Section Attending Provider: Vane Matthew Primary Care Provider: Care Physician,No Primary Discharge Orders/Prescriptions Prescriptions: New acetaminophen 500 mg Tablet 1,000 mg PO Q6H Qty: 0 0RF ibuprofen 600 mg Tablet 600 mg PO Q6H Qty: 0 0RF Continued [id number] 1 mg Tablet 1 tab PO DAILY magnesium PO DAILY Discontinued ferrous sulfate [FeroSul] 325 mg (65 mg iron) Tablet 325 mg PO 1200,1700 Qty: 0 0RF Referrals / Follow Up: Care Physician,No Primary [Primary Care Provider] - Disposition Disposition (needs filled in before D/C Order can be placed): Home, Self Care
[2023-06-04] MEDS: Senna/Docusate Sodium 1 Tablet PO (09:05)
[2023-06-04 10:00] VITALS: BP 106/65; PULSE 84; RESP 16; TEMP 36.8; O2SAT 99
== END 2023-06-04 11:15 | disposition home or self-care (01) | DRG 788 ==
PROVIDERS: Admitting Provider Obstetrics & Gynecology; Referring Provider Obstetrics & Gynecology; Visit Provider Obstetrics & Gynecology
PROC: 10D00Z1 Extraction of Products of Conception, Low, Open Approach (ICD-10-PCS; CPT 59514; principal; 2023-06-02 07:00)
DX: O34.219 Maternal care for unspecified type scar from previous cesarean delivery (principal); Z37.0 Single live birth; Z3A.39 39 weeks gestation of pregnancy
CPT/HCPCS: 59025; 59050; 85025; 85027; 86780; 86850; 86900; 86901; 99221; J7120; A4216; G0378; J2405